=== PATIENT | male | born 1940 | race Caucasian/White ===

== ENCOUNTER 2016-12-27 08:31 | Day surgery (SDC) | payer BC, MEDICARE, OTHER ==
[~2016-12-27 08:31] MED LIST: KETOROLAC TROMETHAMINE 0.45% 4 DROP/0.4 ML DROPERETTE OS PRN
[2016-12-27] MEDS: TETRACAINE HCL 0.5% OPH SOLN 2 ML OS PRN ×3 (09:14→10:08)
[2016-12-27] MEDS: TROPICAMIDE 1% OPH SOLN 3 ML OS PRN ×3 (09:14→09:35)
[2016-12-27] MEDS: BESIFLOXACIN HCL 0.6% OPH SUSP 5 ML BOTTLE OS PRN ×3 (09:15→10:42)
[2016-12-27] MEDS: CYCLOPENTOLATE 0.2%/PHENYLEPHRINE 1% OPH SOLN 2 ML OS PRN ×3 (09:15→09:35)
[2016-12-27] MEDS ORDERED: CHONDR SU A NA/HYALUR INTRAOC KIT (SURGICARE) ONE (09:35)
[2016-12-27] MEDS ORDERED: LIDOCAINE 1% INJ-PF (10 MG/ML) 30 ML SDV ONE (09:35)
[2016-12-27] MEDS ORDERED: PHENYLEPHRINE/KETOROLAC 1%-0.3% 4 ML VIAL ONE (09:35)
[2016-12-27] MEDS ORDERED: MIDAZOLAM 2 MG/2 ML INJ ONE (09:38)
[2016-12-27] MEDS ORDERED: BRIMONIDINE TARTRATE 0.2% OPH SOLN 5 ML OS ONE (10:45)
[2016-12-27] MEDS ORDERED: LIDOCAINE 2% INJ (20 MG/ML) 20 ML MDV ONE (10:50)
--- NOTE | 2016-12-27 19:43 | [facility] OPERATIVE REPORT E ---
[facility] Operative Report NAME: IRENE SCHWARTZ AGE: 76Y PREOPERATIVE DIAGNOSES: 1. CATARACT, LEFT EYE. 2. PUPIL MYOSIS LEFT EYE POSTOPERATIVE DIAGNOSIS: CATARACT, LEFT EYE. OPERATION: Complex cataract extraction with maluygan ring due to very myotic pupils. SURGEON: JUAN R CHINCHILLA M.D. ANESTHESIA: Topical. LENS: 22.0 diopter lens PROCEDURE: After obtaining appropriate consent, the patient's eye was prepped and draped in sterile fashion as well as the surgeon in a sterile manner and cataract surgery was started. First a paracentesis blade was used to make a small side-port incision. Viscoelastic was used to inflate the anterior chamber. Next a 2.4 mm incision was made with the paracentesis blade. A continuous capsulorrhexis incision was made using a cystotome and Utrata forceps. Following this hydrodissection was carried out to make the lens fully loose and mobile and it was rotated 90 degrees. Following this, a bbibmr-wje-rzilohq technique was used to phacoemulsify the lens with a CDE of 15.05. The remaining cortex was removed with irrigation/aspiration. Provisc was instilled into the capsular bag to inflate the bag. A SN60WF, 22 diopter lens was placed. The remaining viscoelastic material was removed with irrigation/aspiration. Following this, a 10-0 nylon suture was used to close the incision and it was found to be watertight. Vigamox was instilled in the eye and a protective shield was placed over the eye. The patient returned to the postoperative recovery in stable condition. Prior to making the capsulorhexis a maluygan ring was inserted due to pupil myosis. This was removed at the end of the case. DICTATING PHYSICIAN: JUAN R CHINCHILLA M.D. [id number] PHY#: [id number] ID: [id number] JOB#: [id number] ACCT: [id number] cc:JUAN R CHINCHILLA M.D. > MTDD
--- NOTE | 2016-12-28 13:13 | DISCHARGE SUMMARY E ---
Discharge Summary NAME: IRENE SCHWARTZ : 1940 AGE: 76Y ADMITTED: 12/27/2016 DISCHARGED: 12/27/2016 This is a 76-year-old male who underwent cataract extraction of his left eye. He should be on a regular diet. No bending at the waist. No heavy lifting. He underwent surgery as he was having trouble reading road signs, making it difficult to drive at night and difficult to read his Bible. DIAGNOSES: 1. Cataract left eye. 2. Pupil myosis left eye. He underwent complex cataract extraction due to use of a Malyugin ring. Pt should use their besivance, Illevro, and Durezol at 3pm/8pm. DICTATING PHYSICIAN: JUAN R CHINCHILLA M.D. [id number] 1940 PHY#: [id number] ID: [id number] JOB#: [id number] ACCT: [id number] cc:JUAN R CHINCHILLA M.D. > MTDD
== END 2016-12-27 11:28 | disposition home or self-care (01) ==
LOC: SC 08:31
PROVIDERS: ATTEND Internal Medicine
PROC: 08RK3JZ Replacement of Left Lens with Synthetic Substitute, Percutaneous Approach (ICD-10-PCS; principal; 2016-12-27 10:00)
DX: H25.12 Age-related nuclear cataract, left eye (principal); H57.03 Miosis; H17.89 Other corneal scars and opacities; E11.9 Type 2 diabetes mellitus without complications; I10 Essential (primary) hypertension; E78.00 Pure hypercholesterolemia, unspecified; K21.9 Gastro-esophageal reflux disease without esophagitis; I51.9 Heart disease, unspecified; Z87.891 Personal history of nicotine dependence; Z88.8 Allergy status to other drugs, medicaments and biological substances; Z79.899 Other long term (current) drug therapy; Z79.82 Long term (current) use of aspirin
CPT/HCPCS: 66982; 82962; V2632; J2250; J3490 ×3; A9270; C9447; 142

== ENCOUNTER 2017-10-30 07:50 | Day surgery (SDC) | payer MEDICARE ==
[~2017-10-30 07:50] MED LIST changes: +DEXTROSE 5%-1/2 NORMAL SALINE 1,000 ML IV PRN; -KETOROLAC TROMETHAMINE 0.45% 4 DROP/0.4 ML DROPERETTE OS PRN
[2017-10-30 08:55] LABS: HEMATOCRIT 40.7 % (37.9-51.0); HEMOGLOBIN 13.3 g/dL (13.5-17.0); MEAN CORPUSCULAR HEMOGLOBIN 27.8 pg (27.0-33.4); MEAN CORPUSCULAR HGB CONC 32.7 g/dL (32.0-36.0); MEAN CORPUSCULAR VOLUME 85 fl (80-97); PLATELET COUNT 201 10^3/uL (150-450); RED BLOOD COUNT 4.79 10^6/uL (4.35-5.55); RED CELL DISTRIBUTION WIDTH 17.9 % (11.5-14.0); WHITE BLOOD COUNT 7.1 10^3/uL (4.0-10.5)
[2017-10-30] MEDS ORDERED: PROPOFOL INJ 200 MG/20 ML VIAL IV ONE (09:55)
[2017-10-30] MEDS ORDERED: LIDOCAINE 2% INJ-PF (20 MG/ML) 10 ML AMPUL ONE (09:55)
[2017-10-30] MEDS ORDERED: EPHEDRINE SULFATE INJ 50 MG/1 ML AMPULE ONE (09:55)
[2017-10-30] MEDS ORDERED: ONDANSETRON HCL INJ/PF 4 MG/2 ML SDV ONE (09:55)
[2017-10-30] MEDS ORDERED: DIPHENHYDRAMINE HCL 50 MG/ML VIAL IV PRN (10:59)
[2017-10-30] MEDS ORDERED: PROMETHAZINE HCL INJ 25 MG/1 ML VIAL IV PRN ×2 (10:59)
[2017-10-30] MEDS ORDERED: ONDANSETRON HCL INJ/PF 4 MG/2 ML SDV IV PRN (10:59)
[2017-10-30] MEDS ORDERED: MEPERIDINE HCL/PF INJ 25 MG/1 ML DISP.SYRIN IV PRN (10:59)
[2017-10-30] MEDS ORDERED: DEXTROSE 5%-1/2 NORMAL SALINE 1,000 ML IV PRN (11:41)
[2017-10-30] MEDS ORDERED: ACETAMINOPHEN 325 MG TABLET PO PRN (11:42)
[2017-10-30] MEDS ORDERED: SIMETHICONE 80 MG TAB.CHEW PO PRN (11:42)
[2017-10-30] MEDS ORDERED: PROMETHAZINE HCL INJ 25 MG/1 ML VIAL INJ PRN (11:43)
--- NOTE | 2017-10-30 12:01 | Operative Report ---
Operative Report DATE OF SURGERY: 10/30/17 Operative Report: The risks, benefits and alternatives of the procedure including risks of bleeding, perforation requiring surgery I explained to the patient in detail and informed consent was obtained. Patient was taken back to the operating room and placed in the left, lateral decubital position. Timeout was called. Propofol medications administered. A rectal examination is done which did not reveal any masses, tears or fissures. An Olympus videoscope was inserted into the patient's rectum. The scope was then carefully advanced all the way to the cecum. The cecum was identified by the usual anatomical landmarks including the ileocecal valve as well as the appendiceal office. Photodocumentation is obtained. The scope was then sequentially pulled back via the various segments of the colon including the ascending colon, hepatic flexure, transverse colon, splenic flexure, descending colon and finding to the rectosigmoid portions of the colon. Retroflexion maneuvers performed. The risks benefits and alternatives of the procedure explained to the patient in detail and informed consent is obtained.A GIF Olympus video scope was inserted into the patient's mouth and hypopharynx, the esophagus is identified intubated and insufflated, the scope was then advanced through the esophagus stomach and duodenum, retroflexion maneuver is done, the esophagus stomach and first and second portions of the duodenum examined PREOPERATIVE DIAGNOSIS: Anemia, questionable blood loss POSTOPERATIVE DIAGNOSIS: Diverticulosis. Internal hemorrhoids. 3 colon polyps. Polyp noted in the ascending colon was removed via biopsy forceps, second polyp noted in the splenic flexure that was removed via snare polypectomy and retrieved, the polyp noted in the sigmoid area attempted snare polypectomy but was essentially ablated in situ. Random right side biopsies rule out collagenous colitis. Gastritis status post biopsy rule out Helicobacter pylori. OPERATION: Colonoscopy with snare polypectomy. Colonoscopy with biopsy. EGD with biopsy SURGEON: MAX VEGA ANESTHESIA: LMAC TISSUE REMOVED OR ALTERED: As noted above. COMPLICATIONS: None. ESTIMATED BLOOD LOSS: None. INTRAOPERATIVE FINDINGS: As noted above. PROCEDURE: Patient tolerated the procedure well. No immediate postprocedure complications are noted. Patient discharged in good condition. Discharge date 10/30/2017 Discharge diet: Regular. Discharge activity: Regular. 2-3 week follow-up to discuss findings. Patient is instructed call the office or proceed to the emergency room should there be any further problems or questions. We will await pathology. 3-5 year surveillance colonoscopy. Alternative prep at next colonoscopy
[2017-10-30 12:39] VITALS: BP 140/72
== END 2017-10-30 12:25 | disposition home or self-care (01) ==
LOC: OROUT 07:50
PROVIDERS: ATTEND Internal Medicine Gastroenterology
PROC: 0DB68ZX Excision of Stomach, Via Natural or Artificial Opening Endoscopic, Diagnostic (ICD-10-PCS; principal; 2017-10-30 10:15)
PROC: 0DBL8ZX Excision of Transverse Colon, Via Natural or Artificial Opening Endoscopic, Diagnostic (ICD-10-PCS; 2017-10-30 10:15)
PROC: 0D5N8ZZ Destruction of Sigmoid Colon, Via Natural or Artificial Opening Endoscopic (ICD-10-PCS; 2017-10-30 10:15)
DX: D12.3 Benign neoplasm of transverse colon (principal); D12.2 Benign neoplasm of ascending colon; D12.5 Benign neoplasm of sigmoid colon; K29.50 Unspecified chronic gastritis without bleeding; K57.30 Diverticulosis of large intestine without perforation or abscess without bleeding; K64.8 Other hemorrhoids; D50.0 Iron deficiency anemia secondary to blood loss (chronic); E11.9 Type 2 diabetes mellitus without complications; I25.10 Atherosclerotic heart disease of native coronary artery without angina pectoris; N40.1 Benign prostatic hyperplasia with lower urinary tract symptoms; Z79.899 Other long term (current) drug therapy; Z79.82 Long term (current) use of aspirin
CPT/HCPCS: 43239; 45380; 45385; 45388; 36415; 82962; 85027; 88342 ×2; 88305 ×2; J2405; J2704; J3490; 44388; 813

== ENCOUNTER 2018-04-24 10:16 | Day surgery (SDC) | payer MEDICARE ==
[~2018-04-24 10:16] MED LIST changes: +CHONDR SU A NA/HYALUR INTRAOC KIT (SURGICARE) ONE; -DEXTROSE 5%-1/2 NORMAL SALINE 1,000 ML IV PRN; +EPINEPHRINE INJ/PF 1 MG/1 ML AMPULE ONE; +KETOROLAC TROMETHAMINE 0.45% 4 DROP/0.4 ML DROPERETTE OD PRN; +LIDOCAINE 1%/PHENYLEPHRINE 1.5% 1 ML VIAL ONE; +LIDOCAINE 3.5% OPH GEL/PF 1 ML/TUBE OD PRN
[2018-04-24] MEDS: CYCLOPENTOLATE 0.2%/PHENYLEPHRINE 1% OPH SOLN 2 ML OD PRN ×3 (10:58→11:18)
[2018-04-24] MEDS: TETRACAINE HCL 0.5% OPH SOLN 2 ML OD PRN ×2 (10:58→11:24)
[2018-04-24] MEDS: TROPICAMIDE 1% OPH SOLN 3 ML OD PRN ×3 (10:59→11:18)
[2018-04-24] MEDS: BESIFLOXACIN HCL 0.6% OPH SUSP 5 ML BOTTLE OD PRN ×2 (10:59→11:19)
[2018-04-24] MEDS ORDERED: TRYPAN BLUE 0.06 % OPH SOLN 0.5 ML DISP.SYRIN ONE ×2 (11:25→11:43)
[2018-04-24] MEDS ORDERED: MIDAZOLAM 2 MG/2 ML INJ ONE (11:32)
[2018-04-24] MEDS ORDERED: BALANCED SALT IRRIG SOLN COMB2 15 ML BOTTLE ONE (12:07)
[2018-04-24] MEDS ORDERED: CHONDR SU A NA/HYALUR SOD 0.5 ML DISP.SYRIN ONE ×2 (12:07→12:16)
[2018-04-24] MEDS ORDERED: BRIMONIDINE TARTRATE 0.2% OPH SOLN 5 ML OD ONE (13:45)
--- NOTE | 2018-04-24 20:16 | [facility] OPERATIVE REPORT E ---
[facility] Operative Report NAME: IRENE SCHWARTZ AGE: 78Y DATE OF SURGERY: 04/24/2018 ROOM: PREOPERATIVE DIAGNOSES: 1. Age-related cataract of the right eye. 2. Pupil miosis of the right eye. 3. Corneal scarring of the right eye. POSTOPERATIVE DIAGNOSES: 1. Age-related cataract of the right eye. 2. Pupil miosis of the right eye. 3. Corneal scarring of the right eye. OPERATION: Complex cataract extraction with use of Trypan Blue dye and a Malyugin ring due to poor pupillary dilation. SURGEON: JUAN R CHINCHILLA M.D. ANESTHESIA: Topical. COMPLICATIONS: None. ESTIMATED BLOOD LOSS: None. PROCEDURE: After obtaining appropriate consent, the patient's right eye was prepped and draped in sterile fashion as well as the surgeon in a sterile manner, and the cataract surgery was started. First, the paracentesis blade was used to make a small side-port incision. Viscoelastic was used to inflate the anterior chamber. Next a 2.4 mm incision was made using a 2.4 mm keratome. At this point, the pupil was less than 4.5 mm and was very miotic. In order to complete the capsulorhexis, a Malyugin ring was inserted and found to be in excellent position to help stabilize the pupil. Following this, a continuous capsulorhexis was made using a cystitome and Utrata forceps. Following this, hydrodissection was carried out to make the lens fully loose and mobile, and it was rotated 90 degrees. Following this, a divide and conquer technique was used to phacoemulsify the lens with a CDE of 27.93. The remaining cortex was removed with irrigation/aspiration. Provisc was instilled into the capsular bag to inflate the bag. A SN60WF lens of 28.5 diopters was placed. The remaining viscoelastic material was removed with irrigation/aspiration. After this the Malyugin ring was removed. Following this, the incision was found to be watertight. Besivance was instilled into the eye and a protective shield was placed over the eye. The patient returned to the postoperative recovery in stable condition. Due to previous corneal procedures and scarring as well as a sutured graft, there was very poor visualization of the anterior capsule; therefore, Trypan Blue dye was used to stain the anterior capsule before performing a capsulorrhexis. Due to poor pupillary dilation a Malyugin ring was inserted into the iris prior to making the capsulorrhexis and this was removed at the end of the case. DICTATING PHYSICIAN: JUAN R CHINCHILLA M.D. [id number] 2008 PHY#: [id number] 1937 ID: [id number] JOB#: [id number] ACCT: [id number] cc:JUAN R CHINCHILLA M.D. >
--- NOTE | 2018-04-24 20:22 | [facility] DISCHARGE SUMMARY E ---
[facility] Discharge Summary NAME: IRENE SCHWARTZ AGE: 78Y ADMITTED: 04/24/2018 DISCHARGED: 04/24/2018 DIAGNOSES: 1. Age-related cataract of the right eye. 2. Pupil miosis of the right eye. SUMMARY: This is a 78-year-old male who underwent complex cataract extraction, right eye with use of Malyugin ring and Trypan Blue dye. Patient underwent surgery because he was having trouble seeing facial features on others. DISCHARGE INSTRUCTIONS: Patient is to be on a regular diet, no bending at the waist, and no heavy lifting. Patient should use his Besivance, Ilevro, and Durezol at 3 p.m. and 8 p.m. I also instructed him to use Alphagan at 3 p.m., 8 p.m., and in the morning to help control his IOP. Patient is to sleep with his rigid shield, and I will see him for his 1-day postoperative tomorrow. DICTATING PHYSICIAN: JUAN R CHINCHILLA M.D. [id number] 2012 PHY#: 2011 1937 ID: [id number] JOB#: [id number] ACCT: [id number] cc:JUAN R CHINCHILLA M.D. >
== END 2018-04-24 13:13 | disposition home or self-care (01) ==
LOC: SC 10:16
PROVIDERS: ATTEND Internal Medicine
DX: H25.89 Other age-related cataract (principal); H57.03 Miosis; H17.9 Unspecified corneal scar and opacity; E11.9 Type 2 diabetes mellitus without complications; I10 Essential (primary) hypertension; Z88.8 Allergy status to other drugs, medicaments and biological substances; Z87.891 Personal history of nicotine dependence
CPT/HCPCS: 66982; V2632; J2250; J3490 ×4; A9270; J0171; J2370; 142

== ENCOUNTER 2018-11-08 16:53 | Inpatient (IN) | payer MEDICARE, OTHER ==
--- NOTE | 2018-11-08 18:27 | ER Document Report ---
ED Medical Screen (RME) - General Chief Complaint: Fever Stated Complaint: FEVER Time Seen by Provider: 11/08/18 18:18 Primary Care Provider: HOMER MARTINEZ DO [Primary Care Provider] - Follow up as needed Mode of Arrival: Wheelchair Information source: Patient, Relative, [facility] Records Notes: 78-year-old male with coronary artery disease presents with sudden onset of chills, shaking. Patient denies headache, nausea, vomiting, cough, chest pain, shortness of breath, abdominal pain. Patient did receive a flu and pneumonia shot. Patient reports that he had similar symptoms when he was diagnosed with sepsis several years ago. He has been otherwise well. I have greeted and performed a rapid initial assessment of this patient. A comprehensive ED assessment and evaluation of the patient, analysis of test results and completion of medical decision making process we will be contacted by additional ED providers. PHYSICAL EXAMINATION: Vital signs reviewed-tachycardic GENERAL: Pale, ill-appearing LUNGS: No respiratory distress Musculoskeletal: Normal range of motion NEUROLOGICAL: Normal speech, PSYCH: Normal mood, normal affect. SKIN: Warm, Dry, normal turgor, no rashes or lesions noted.- TRAVEL OUTSIDE OF THE [place] IN LAST 30 DAYS: No - HPI Onset: Just prior to arrival Onset/Duration: Sudden Quality of pain: No pain Severity: None Associated Symptoms: None, Chills, Other. denies: Body/muscle aches, Cough (productive), Diarrhea, Fever, Nausea - Shaking Exacerbated by: Denies Relieved by: Denies Similar symptoms previously: Yes Recently seen / treated by doctor: No - Related Data Smoking: Non-smoker Frequency of alcohol use: None Drug Abuse: None Allergies/Adverse Reactions: clopidogrel [From Plavix] Allergy (Verified 10/30/17 08:25) Generalized rash SEAFOOD Allergy (Uncoded 10/30/17 08:25) GI upset Past Medical History - Past Medical History Cardiac Medical History: Reports: Hx Coronary Artery Disease, Hx Hypertension Denies: Hx Heart Attack - STENT X 1 Pulmonary Medical History: Reports: Hx Pneumonia Denies: Hx Asthma, Hx Bronchitis, Hx COPD Neurological Medical History: Denies: Hx Cerebrovascular Accident, Hx Seizures Renal/ Medical History: Denies: Hx Peritoneal Dialysis GI Medical History: Denies: Hx Hepatitis, Hx Hiatal Hernia, Hx Ulcer Musculoskeltal Medical History: Denies Hx Arthritis Infectious Medical History: Denies: Hx Hepatitis Past Surgical History: Denies: Hx Open Heart Surgery, Hx Pacemaker - Immunizations Hx Diphtheria, Pertussis, Tetanus Vaccination: No History of Influenza Vaccine for 06/2017 - 10/2017 Season: Yes Physical Exam - Vital signs Vitals: Temp Pulse Resp BP Pulse Ox 98.2 F 121 H 18 149/89 H 96 11/08/18 16:59 11/08/18 16:59 11/08/18 16:59 11/08/18 16:59 11/08/18 16:59 Course - Vital Signs Vital signs: Temp Pulse Resp BP Pulse Ox 98.2 F 121 H 18 149/89 H 96 11/08/18 16:59 11/08/18 16:59 11/08/18 16:59 11/08/18 16:59 11/08/18 16:59 Doctor's Discharge - Discharge Referrals: HOMER MARTINEZ DO [Primary Care Provider] - Follow up as needed
[2018-11-08] MEDS ORDERED: RINGERS SOLUTION,LACTATED 1,000 ML IV ONE (18:30)
[2018-11-08 18:42] LABS: ABSOLUTE LYMPHOCYTES (AUTO) 0.4 10^3/uL (0.5-4.7); ABSOLUTE NEUT (AUTO) 3.8 10^3/uL (1.7-8.2); BASOPHILS % (AUTO) 0.2 % (0-2); EOSINOPHILS % (AUTO) 0.8 % (0-6); HEMATOCRIT 43.7 % (37.9-51.0); LYMPHOCYTES % (AUTO) 8.6 % (13-45); MEAN CORPUSCULAR HEMOGLOBIN 30.3 pg (27.0-33.4); MEAN CORPUSCULAR HGB CONC 34.2 g/dL (32.0-36.0); MEAN CORPUSCULAR VOLUME 89 fl (80-97); MONOCYTES % (AUTO) 0.6 % (3-13); PLATELET COUNT 180 10^3/uL (150-450); RED BLOOD COUNT 4.94 10^6/uL (4.35-5.55); RED CELL DISTRIBUTION WIDTH 13.8 % (11.5-14.0); SEGMENTED NEUTROPHILS % (AUTO) 89.8 % (42-78); TOTAL CELLS COUNTED % (AUTO) 100 %; WHITE BLOOD COUNT 4.2 10^3/uL (4.0-10.5)
[2018-11-08 19:05] LABS: ALANINE AMINOTRANSFERASE 55 U/L (21-72); ALBUMIN 4.7 g/dL (3.5-5.0); ALKALINE PHOSPHATASE 86 U/L (38-126); ANION GAP 13 (5-19); ASPARTATE AMINO TRANSFERASE 50 U/L (17-59); BILIRUBIN,DIRECT 0.2 mg/dL (0.0-0.4); BILIRUBIN,TOTAL 0.5 mg/dL (0.2-1.3); BLOOD UREA NITROGEN 17 mg/dL (7-20); CALCIUM 9.6 mg/dL (8.4-10.2); CARBON DIOXIDE 24 mmol/L (22-30); CHLORIDE 100 mmol/L (98-107); GLUCOSE 107 mg/dL (75-110); POTASSIUM 3.8 mmol/L (3.6-5.0); SODIUM 137.1 mmol/L (137-145); TOTAL PROTEIN 7.4 g/dL (6.3-8.2)
[2018-11-08] MEDS ORDERED: DILTIAZEM HCL/D5W 125 MG/125 ML RTUINJ IV PRN (19:15)
[2018-11-08] MEDS ORDERED: DILTIAZEM HCL INJ 25 MG/5 ML VIAL IV ONE (19:15)
--- NOTE | 2018-11-08 19:16 | ER Document Report ---
ED General - General Chief Complaint: Fever Stated Complaint: FEVER Time Seen by Provider: 11/08/18 18:18 Primary Care Provider: HOMER MARTINEZ DO [Primary Care Provider] - Follow up as needed Mode of Arrival: Wheelchair Notes: 78-year-old male to the emergency department for evaluation of possible fever. Patient states that he has not felt well for several days. Has felt very weak and out of it. Not himself. Was feeling very cold and was bundled up in multiple blankets by the fire. checked his temperature and said it was 104 by digital thermometer. They decided to bring him in because he has been septic in the past. Patient denies any abdominal pain, chest pain, changes in bowel or bladder function or other issues other than just feeling very tired and weak and sleepy. TRAVEL OUTSIDE OF THE [place] IN LAST 30 DAYS: No - HPI Onset: Yesterday Onset/Duration: Gradual Quality of pain: No pain Severity: Moderate Pain Level: Denies Associated symptoms: Fever, Weakness Similar symptoms previously: Yes Recently seen / treated by doctor: No - Related Data Allergies/Adverse Reactions: clopidogrel [From Plavix] Allergy (Verified 10/30/17 08:25) Generalized rash SEAFOOD Allergy (Uncoded 10/30/17 08:25) GI upset Past Medical History - General Information source: Patient, Relative, [facility] Records - Social History Smoking Status: Former Smoker Frequency of alcohol use: None Drug Abuse: None Family History: Reviewed & Not Pertinent Patient has suicidal ideation: No Patient has homicidal ideation: No - Past Medical History Cardiac Medical History: Reports: Hx Coronary Artery Disease, Hx Hypertension Denies: Hx Heart Attack - STENT X 1 Pulmonary Medical History: Reports: Hx Pneumonia Denies: Hx Asthma, Hx Bronchitis, Hx COPD Neurological Medical History: Denies: Hx Cerebrovascular Accident, Hx Seizures Renal/ Medical History: Denies: Hx Peritoneal Dialysis GI Medical History: Denies: Hx Hepatitis, Hx Hiatal Hernia, Hx Ulcer Musculoskeletal Medical History: Denies Hx Arthritis Infectious Medical History: Denies: Hx Hepatitis Past Surgical History: Denies: Hx Open Heart Surgery, Hx Pacemaker - Immunizations Hx Diphtheria, Pertussis, Tetanus Vaccination: No Hx Pneumococcal Vaccination: 06/02/17 Review of Systems - Review of Systems Notes: Constitutional: denies: Chills, Diaphoresis, +Fever, +Malaise, +Weakness EENT: denies: Eye discharge, Blurred vision, Tearing, Double vision, Nose congestion, Nose discharge, Throat swelling, Mouth pain Cardiovascular: denies: Palpitations, Heart racing, Orthopnea, Dyspnea, Chest pain Respiratory: denies: Cough, Hurts to breathe, Wheezing, Shortness of breath Gastrointestinal: denies: Abdominal pain, Diarrhea, Nausea, Vomiting, Black stools, bright red blood in stool Genitourinary: denies: Burning, Dysuria, Discharge, Frequency, Flank pain, Hematuria Musculoskeletal: denies: Joint pain, Joint swelling, Muscle pain, Muscle stiffness, back pain Hematologic/Lymphatic: denies: Anemia, Easy bleeding, Easy bruising, Blood clots Neurological/Psychological: denies: Confusion, Dementia, Depression, Loss of consciousness Skin: No lesions, no masses, no skin breakdown, no abscesses Physical Exam - Vital signs Vitals: Temp Pulse Resp BP Pulse Ox 98.2 F 121 H 18 149/89 H 96 11/08/18 16:59 11/08/18 16:59 11/08/18 16:59 11/08/18 16:59 11/08/18 16:59 Interpretation: Tachycardic - Irregularly irregular - General General appearance: Appears well, Alert - HEENT Head: Normocephalic, Atraumatic Eyes: Normal Pupils: PERRL - Respiratory Respiratory status: No respiratory distress Chest status: Nontender Breath sounds: Other - Faint crackles bilateral lower lobes Chest palpation: Normal - Cardiovascular Rhythm: Irregularly irregular, Tachycardia Heart sounds: Normal auscultation Murmur: No - Abdominal Inspection: Normal Distension: No distension Bowel sounds: Normal Tenderness: Nontender Organomegaly: No organomegaly - Back Back: Normal, Nontender - Extremities General upper extremity: Normal inspection, Nontender, Normal color, Normal ROM, Normal temperature General lower extremity: Normal inspection, Nontender, Edema - Race bilateral lower extremity edema, Normal color, Normal ROM, Normal temperature, Normal weight bearing. No: Price's sign - Neurological Neuro grossly intact: Yes Cognition: Normal Orientation: AAOx4 Nucla Coma Scale Eye Opening: Spontaneous Jamarcus Coma Scale Verbal: Oriented Jamarcus Coma Scale Motor: Obeys Commands Nucla Coma Scale Total: 15 Speech: Normal Motor strength normal: LUE, RUE, LLE, RLE Sensory: Normal - Psychological Associated symptoms: Normal affect, Normal mood - Skin Skin Temperature: Warm Skin Moisture: Dry Skin Color: Normal Course - Re-evaluation Re-evalutation: 11/08/18 20:26 Patient is afebrile at time of admission but found to be in atrial fibrillation with rapid ventricular response with heart rates all the way up to 170. Patient immediately placed on a diltiazem drip and bolus. Patient's heart rate is coming down nicely. Currently patient's heart rate is around 104. Blood pressure remains stable at 117/73. Oxygen saturations are 95% with a respiratory rate of 20. I have ordered sepsis protocol just to be safe been th at the family reported a fever but no fever here. Lactate slightly elevated. 11/08/18 20:41 Laboratory 11/08/18 11/08/18 11/08/18 18:22 18:22 18:22 WBC 4.2 RBC 4.94 Hgb 15.0 Hct 43.7 MCV 89 MCH 30.3 MCHC 34.2 RDW 13.8 Plt Count 180 Seg Neutrophils % 89.8 H Lymphocytes % 8.6 L Monocytes % 0.6 L Eosinophils % 0.8 Basophils % 0.2 Absolute Neutrophils 3.8 Absolute Lymphocytes 0.4 L Absolute Monocytes 0.0 L Absolute Eosinophils 0.0 Absolute Basophils 0.0 PT INR APTT VBG pH VBG pCO2 VBG HCO3 VBG Base Excess Sodium 137.1 Potassium 3.8 Chloride 100 Carbon Dioxide 24 Anion Gap 13 BUN 17 Creatinine 1.11 Est GFR ( Amer) > 60 Est GFR (Non-Af Amer) > 60 Glucose 107 Lactic Acid 3.2 H Calcium 9.6 Total Bilirubin 0.5 Direct Bilirubin 0.2 Neonat Total Bilirubin Not Reportable Neonat Direct Bilirubin Not Reportable Neonat Indirect Bili Not Reportable AST 50 ALT 55 Alkaline Phosphatase 86 Troponin I NT-Pro-B Natriuret Pep Total Protein 7.4 Albumin 4.7 Influenza A (Rapid) Influenza B (Rapid) 11/08/18 11/08/18 11/08/18 18:22 18:22 18:54 WBC RBC Hgb Hct MCV MCH MCHC RDW Plt Count Seg Neutrophils % Lymphocytes % Monocytes % Eosinophils % Basophils % Absolute Neutrophils Absolute Lymphocytes Absolute Monocytes Absolute Eosinophils Absolute Basophils PT 14.1 INR 1.04 APTT 27.7 VBG pH VBG pCO2 VBG HCO3 VBG Base Excess Sodium Potassium Chloride Carbon Dioxide Anion Gap BUN Creatinine Est GFR ( Amer) Est GFR (Non-Af Amer) Glucose Lactic Acid Calcium Total Bilirubin Direct Bilirubin Neonat Total Bilirubin Neonat Direct Bilirubin Neonat Indirect Bili AST ALT Alkaline Phosphatase Troponin I < 0.012 NT-Pro-B Natriuret Pep 192 Total Protein Albumin Influenza A (Rapid) NEGATIVE Influenza B (Rapid) NEGATIVE 11/08/18 19:35 WBC RBC Hgb Hct MCV MCH MCHC RDW Plt Count Seg Neutrophils % Lymphocytes % Monocytes % Eosinophils % Basophils % Absolute Neutrophils Absolute Lymphocytes Absolute Monocytes Absolute Eosinophils Absolute Basophils PT INR APTT VBG pH 7.39 VBG pCO2 48.3 VBG HCO3 28.4 VBG Base Excess 2.5 Sodium Potassium Chloride Carbon Dioxide Anion Gap BUN Creatinine Est GFR ( Amer) Est GFR (Non-Af Amer) Glucose Lactic Acid Calcium Total Bilirubin Direct Bilirubin Neonat Total Bilirubin Neonat Direct Bilirubin Neonat Indirect Bili AST ALT Alkaline Phosphatase Troponin I NT-Pro-B Natriuret Pep Total Protein Albumin Influenza A (Rapid) Influenza B (Rapid) Chest X-Ray 11/08/18 19:16 IMPRESSION: No evidence of acute cardiopulmonary disease. - Vital Signs Vital signs: Temp Pulse Resp BP Pulse Ox 98.2 F 121 H 25 H 104/62 93 11/08/18 16:59 11/08/18 16:59 11/08/18 20:43 11/08/18 20:43 11/08/18 20:43 - Laboratory Result Diagrams: 11/08/18 18:22 11/08/18 18:22 Laboratory results interpreted by me: 11/08/18 11/08/18 18:22 18:22 Seg Neutrophils % 89.8 H Lymphocytes % 8.6 L Monocytes % 0.6 L Absolute Lymphocytes 0.4 L Absolute Monocytes 0.0 L Lactic Acid 3.2 H Critical Care Note - Critical Care Note Total time excluding time spent on procedures (mins): 35 Comments: Tachycardia,, hypotension Discharge - Discharge Clinical Impression: Atrial fibrillation with rapid ventricular response Condition: Good Disposition: ADMITTED INPATIENT Admitting Provider: Hospitalist [facility] Unit Admitted: IMCU Referrals: HOMER MARTINEZ DO [Primary Care Provider] - Follow up as needed
[2018-11-08 19:31] LABS: INTERNATIONAL RATION (INR) 1.04; PROTHROMBIN TIME 14.1 SEC (11.4-15.4)
[2018-11-08 19:32] LABS: PARTIAL THROMBOPLASTIN TIME 27.7 SEC (23.5-35.8)
[2018-11-08 19:42] LABS: A TYPE INFLUENZA AG NEGATIVE (NEGATIVE); B INFLUENZA AG NEGATIVE (NEGATIVE)
[2018-11-08 19:46] LABS: NT PRO BNP 192 pg/mL (<450)
[2018-11-08 19:47] LABS: TROPONIN I < 0.012 ng/mL
[2018-11-08 20:01] LABS: VENOUS BLOOD BASE EXCESS 2.5 mmol/L; VENOUS BLOOD HCO3 28.4 mmol/L (20-32); VENOUS BLOOD PCO2 48.3 mmHg (35-63); VENOUS BLOOD PH 7.39 (7.30-7.42)
--- NOTE | 2018-11-08 20:31 | RADIOLOGY REPORT (SQ) ---
EXAM DESCRIPTION: XR CHEST 1 VIEW COMPLETED DATE/TME: 11/08/2018 19:16 CLINICAL HISTORY: sob COMPARISON: None FINDINGS: Cardiac silhouette is mildly enlarged which could be secondary to cardiomegaly. EKG leads project over the chest. There is no focal parenchymal or pleural disease. There is no acute osseous process visualized. IMPRESSION: No evidence of acute cardiopulmonary disease.
[2018-11-08] MEDS ORDERED: NORMAL SALINE 1000 ML 1,000 ML IV ONE ×2 (20:45→20:50)
[2018-11-08] MEDS ORDERED: ONDANSETRON 4 MG TAB.RAPDIS PO PRN (21:24)
[2018-11-08] MEDS ORDERED: TEMAZEPAM 15 MG CAPSULE PO PRN (21:24)
[2018-11-08] MEDS ORDERED: ONDANSETRON HCL INJ/PF 4 MG/2 ML SDV IV PRN (21:24)
[2018-11-08] MEDS ORDERED: MAGNESIUM HYDROXIDE SUSP 30 ML UDCUP PO PRN (21:24)
[2018-11-08] MEDS ORDERED: MAG HYDROX/AL HYDROX/SIMETH SUSP 30 ML UDCUP PO PRN (21:24)
[2018-11-08] MEDS ORDERED: ACETAMINOPHEN 325 MG TABLET PO PRN (21:39)
[2018-11-08] MEDS ORDERED: MEROPENEM 1 GM VIAL IV PRN (21:45)
--- NOTE | 2018-11-08 22:18 | EKG REPORT ---
SEVERITY:- ABNORMAL ECG - ATRIAL FIBRILLATION INCOMPLETE RIGHT BUNDLE BRANCH BLOCK : Confirmed by: Marry Sal MD 08-Nov-2018 22:17:22
[2018-11-08 22:22] LABS: CREATINE KINASE MB 0.88 ng/mL (<4.55)
[2018-11-08 22:23] LABS: TROPONIN I < 0.012 ng/mL
[2018-11-08 22:38] LABS: APPEARANCE,URINE SLIGHTLY-CLOUDY; BILIRUBIN,URINE NEGATIVE (NEGATIVE); COLOR,URINE YELLOW; GLUCOSE, URINE NEGATIVE (NEGATIVE); KETONES,URINE NEGATIVE (NEGATIVE); LEUKOCYTE ESTERASE,URINE NEGATIVE (NEGATIVE); NITRITE,URINE NEGATIVE (NEGATIVE); PROTEIN,URINE NEGATIVE (NEGATIVE); URINE SPECIFIC GRAVITY 1.013; UROBILINOGEN,URINE NEGATIVE mg/dL (<2.0)
[2018-11-08] MEDS ORDERED: MEROPENEM 1 GM in NORMAL SALINE 50 ML IV ONE (23:30)
[2018-11-08] MEDS ORDERED: FAMOTIDINE 20 MG TABLET PO ONE (23:59)
--- NOTE | 2018-11-09 00:09 | PDOC H&P ---
History of Present Illness Admission Date/PCP: 11/08/18 20:54 HOMER MARTINEZ DO Patient complains of: Fever History of Present Illness: IRENE SCHWARTZ SR is a 78 year old male who presented to the emergency room with acute onset of fever. Patient states that he was at home today and at approximately 4 PM developed a sensation of severe fatigue and generalized weakness accompanied by severe chills causing him to bundle up and sit by the fireplace. His noticed he was feeling poorly and checked his temperature with a digital thermometer which recorded a 104 F reading. She insisted that he come to the hospital immediately at that point. He describes his general fatigue, weakness and malaise as moderate to severe and his fever and chills as severe. He denies the presence of any other associated symptoms. He admits having similar symptoms on numerous occasions in the past without fever and on one occasion with fever at which time he was diagnosed with sepsis. Recently he has experienced several similar brief episodes without fever over the last 2-3 weeks and this is his second or third similar episode this week. In the emergency room he was found to have a normal evaluation with the exception of an elevated lactic acid of 3.4 and apparent new onset atrial fibrillation with rapid ventricular response. With these findings the patient was hospitalized for further evaluation and treatment. Past Medical History Cardiac Medical History: Reports: Coronary Artery Disease, Hypertension Denies: Atrial Fibrillation, Myocardial Infarction - STENT X 1 Pulmonary Medical History: Reports: Pneumonia Denies: Asthma, Bronchitis, Chronic Obstructive Pulmonary Disease (COPD) EENT Medical History: Reports: Cataracts, Eyes - Corrective lenses Neurological Medical History: Denies: Hemorrhagic CVA, Ischemic CVA, Seizures Endocrine Medical History: Reports: Obesity Denies: Diabetes Mellitus Type 1, Diabetes Mellitus Type 2, Hyperthyroidism, Hypothyroidism Renal/ Medical History: Reports: Other - Prostatic hypertrophy, bladder problems Denies: Chronic Kidney Disease, Nephrolithiasis Malignancy Medical History: Reports: None GI Medical History: Reports: Gastroesophageal Reflux Disease Denies: Cirrhosis, Hepatitis, Hiatal Hernia Musculoskeltal Medical History: Denies: Arthritis, Gout Skin Medical History: Denies: Eczema, Psoriasis Psychiatric Medical History: Denies: Alcohol Dependency, Substance Abuse, Tobacco Dependency Traumatic Medical History: Reports: None Hematology: Reports: Anemia Denies: Bleeding Tendencies Infectious Medical History: Reports: Other Infectious History Note: History of sepsis Past Surgical History Past Surgical History: Reports: Other - Cataract surgery, EGD Social History Information Source: Patient, Relative - Lives with: Spouse/Significant other Smoking Status: Former Smoker Frequency of Alcohol Use: None Hx Recreational Drug Use: No Drugs: None Hx Prescription Drug Abuse: No - Advance Directive Resuscitation Status: Full Code Surrogate healthcare decision maker:: Family History Family History: CAD, Hypertension Parental Family History Reviewed: Yes Children Family History Reviewed: No Sibling(s) Family History Reviewed.: Yes Medication/Allergy Home Medications: Isosorbide Mononitrate [Imdur 60 mg Tablet.er] 60 mg PO DAILY 12/20/16 Losartan Potassium 100 mg PO DAILY 12/20/16 Metoprolol Succinate [Toprol Xl] 25 mg PO DAILY 12/20/16 Omeprazole 20 mg PO BID 12/20/16 Oxybutynin Chloride 5 mg PO DAILY 12/20/16 Pravastatin Sodium 40 mg PO DAILY 12/20/16 Tamsulosin HCl [Flomax] 0.4 mg PO BID 12/20/16 Valacyclovir HCl [Valacyclovir] 500 mg PO BID 12/20/16 Ferrous Sulfate 325 mg PO DAILY 10/30/17 Besifloxacin HCl [Besivance 0.6% Oph Susp 5 ml] 1 drop OP ASDIR PRN 04/18/18 Difluprednate [Durezol] 5 ml OP ASDIR PRN 04/18/18 Dutasteride 0.5 mg PO DAILY 04/18/18 Prednisolone Acetate/Pf [Prednisolone Acet 1% Eye Drop] 5 ml OP ASDIR PRN 04/18/18 Allergies/Adverse Reactions: clopidogrel [From Plavix] Allergy (Verified 10/30/17 08:25) Generalized rash SEAFOOD Allergy (Uncoded 10/30/17 08:25) GI upset Review of Systems Constitutional: PRESENT: as per HPI, chills, fatigue, fever(s), weakness, other - Generalized malaise Eyes: ABSENT: visual disturbances, other - Ocular pain Ears: ABSENT: hearing changes, other - Ear pain Nose, Mouth, and Throat: ABSENT: mouth pain, sore throat Cardiovascular: ABSENT: chest pain, dyspnea on exertion, orthropnea, palpitations Respiratory: ABSENT: cough, dyspnea Gastrointestinal: ABSENT: abdominal pain, constipation, diarrhea, nausea, vomiting Genitourinary: ABSENT: dysuria, hematuria Musculoskeletal: ABSENT: deformity, joint swelling Integumentary: ABSENT: pruritus, rash Neurological: ABSENT: confusion, convulsions, focal weakness, memory loss Psychiatric: ABSENT: anxiety, depression Endocrine: ABSENT: cold intolerance, heat intolerance Hematologic/Lymphatic: ABSENT: easy bleeding, easy bruising Physical Exam Vital Signs: Temp Pulse Resp BP Pulse Ox 98.2 F 121 H 23 H 113/61 94 11/08/18 16:59 11/08/18 16:59 11/08/18 21:36 11/08/18 21:36 11/08/18 21:36 Intake & Output 11/06/18 11/07/18 11/08/18 23:59 23:59 23:59 Weight 91.626 kg General appearance: PRESENT: no acute distress, cooperative, obese Head exam: PRESENT: atraumatic, normocephalic Eye exam: PRESENT: conjunctiva pink, EOMI. ABSENT: scleral icterus Ear exam: PRESENT: normal external ear exam. ABSENT: bleeding, drainage Mouth exam: PRESENT: dry mucosa, neck supple Neck exam: ABSENT: thyromegaly, tracheal deviation Respiratory exam: PRESENT: clear to auscultation isela, symmetrical, unlabored Cardiovascular exam: PRESENT: irregular rhythm - Irregularly irregular rate and rhythm. ABSENT: clicks, gallop, rubs Vascular exam: PRESENT: normal capillary refill. ABSENT: pallor GI/Abdominal exam: PRESENT: normal bowel sounds, soft. ABSENT: tenderness Rectal exam: PRESENT: deferred Extremities exam: ABSENT: joint swelling, pedal edema Musculoskeletal exam: PRESENT: full ROM, normal inspection Neurological exam: PRESENT: alert, oriented to person, oriented to place, oriented to time, oriented to situation, CN II-XII grossly intact. ABSENT: m otor sensory deficit Psychiatric exam: PRESENT: appropriate affect, normal mood Skin exam: PRESENT: dry, intact, warm. ABSENT: jaundice, rash, urticaria Results Laboratory Results: 11/08/18 18:22 11/08/18 18:22 11/08/18 11/08/18 11/08/18 18:22 18:22 18:22 WBC 4.2 RBC 4.94 Hgb 15.0 Hct 43.7 MCV 89 MCH 30.3 MCHC 34.2 RDW 13.8 Plt Count 180 Seg Neutrophils % 89.8 H Lymphocytes % 8.6 L Monocytes % 0.6 L Eosinophils % 0.8 Basophils % 0.2 Absolute Neutrophils 3.8 Absolute Lymphocytes 0.4 L Absolute Monocytes 0.0 L Absolute Eosinophils 0.0 Absolute Basophils 0.0 VBG pH VBG pCO2 VBG HCO3 VBG Base Excess Sodium 137.1 Potassium 3.8 Chloride 100 Carbon Dioxide 24 Anion Gap 13 BUN 17 Creatinine 1.11 Est GFR ( Amer) > 60 Est GFR (Non-Af Amer) > 60 Glucose 107 Lactic Acid 3.2 H Calcium 9.6 Total Bilirubin 0.5 AST 50 ALT 55 Alkaline Phosphatase 86 Total Protein 7.4 Albumin 4.7 11/08/18 19:35 WBC RBC Hgb Hct MCV MCH MCHC RDW Plt Count Seg Neutrophils % Lymphocytes % Monocytes % Eosinophils % Basophils % Absolute Neutrophils Absolute Lymphocytes Absolute Monocytes Absolute Eosinophils Absolute Basophils VBG pH 7.39 VBG pCO2 48.3 VBG HCO3 28.4 VBG Base Excess 2.5 Sodium Potassium Chloride Carbon Dioxide Anion Gap BUN Creatinine Est GFR ( Amer) Est GFR (Non-Af Amer) Glucose Lactic Acid Calcium Total Bilirubin AST ALT Alkaline Phosphatase Total Protein Albumin 11/08/18 18:22 Troponin I < 0.012 NT-Pro-B Natriuret Pep 192 Impressions: Chest X-Ray 11/08/18 19:16 IMPRESSION: No evidence of acute cardiopulmonary disease. Assessment & Plan - Diagnosis (1) SIRS (systemic inflammatory response syndrome) Is this a current diagnosis for this admission?: Yes Plan: Patient meets criteria and for SIRS syndrome consideration due to his tachycardia, documented fever and possible endorgan damage/change with new onset atrial fibrillation. He is therefore started on meropenem 1 g IV every 8 hours pending results of blood cultures and urine culture. His vital signs and overall status to be monitored closely on the [facility] with telemetry. (2) Atrial fibrillation with rapid ventricular response Is this a current diagnosis for this admission?: Yes Plan: Patient will be continued on his Cardizem drip as it has been providing excellent control of his atrial fibrillation with rapid ventricular response since being started in the emergency room. Patient's blood pressure is doing well on his heart rate is staying in the 90-110 range. He will be converted to oral therapy by his regular hospitalist. (3) Elevated lactic acid level Is this a current diagnosis for this admission?: Yes Plan: Patient's elevated lactic acid level will be followed with serial lactic acid levels every 4 hours x3 over the course of his initial antibiotic therapy and hydration to see if there is a significant decrease attributable to hemoconcentr ation or mild nonseptic acidosis. (4) CAD (coronary artery disease) Qualifiers: Coronary Disease-Associated Artery/Lesion type: [place] artery [place] vs. transplanted heart: [place] heart Associated angina: angina presence unspecified Qualified Code(s): I25.10 - Atherosclerotic heart disease of [place] coronary artery without angina pectoris Is this a current diagnosis for this admission?: Yes Plan: Patient will be continued on his usual coronary artery disease medications as appropriate. - Time Time Spent: 50 to 70 Minutes Critical Time spent with patient: Less than 15 minutes Medications reviewed and adjusted accordingly: Yes Anticipated discharge: Home - Inpatient Certification Based on my medical assessment, after consideration of the patient's comorbidities, presenting symptoms, or acuity I expect that the services needed warrant INPATIENT care.: Yes I certify that my determination is in accordance with my understanding of Medicare's requirements for reasonable and necessary INPATIENT services [42 CFR 412.3e].: Yes Medical Necessity: Significant Comorbidiites Make Outpatient Treatment Too Risky, Need Close Monitoring Due to Risk of Patient Decompensation, Need For IV Fluids, Need For Continuous Telemetry Monitoring, Need for IV Antibiotics, Risk of Complication if Not Cared For in Hospital
[2018-11-09] MEDS: RINGERS SOLUTION,LACTATED 1,000 ML IV PRN ×3 (03:47→19:08)
[2018-11-09] MEDS ORDERED: MEROPENEM 1 GM VIAL ONE (04:06)
[2018-11-09] MEDS: MEROPENEM 1 GM in NORMAL SALINE 50 ML IV SCH ×3 (05:02→21:39)
[2018-11-09 05:31] LABS: VENOUS BLOOD BASE EXCESS -0.7 mmol/L; VENOUS BLOOD HCO3 23.7 mmol/L (20-32); VENOUS BLOOD PCO2 38.5 mmHg (35-63); VENOUS BLOOD PH 7.41 (7.30-7.42)
[2018-11-09 05:43] LABS: ANION GAP 12 (5-19); BLOOD UREA NITROGEN 15 mg/dL (7-20); CALCIUM 9.4 mg/dL (8.4-10.2); CARBON DIOXIDE 20 mmol/L (22-30); CHLORIDE 105 mmol/L (98-107); CHOLESTEROL 94.07 mg/dL (0-200); CREATINE KINASE 128 U/L (55-170); GLUCOSE 134 mg/dL (75-110); POTASSIUM 4.3 mmol/L (3.6-5.0); SODIUM 137.4 mmol/L (137-145); TRIGLYCERIDES 90 mg/dL (<150)
[2018-11-09 05:54] LABS: DIRECT LDL 54 mg/dL (<100)
[2018-11-09 05:58] LABS: HEMATOCRIT 42.4 % (37.9-51.0); HEMOGLOBIN 14.1 g/dL (13.5-17.0); MEAN CORPUSCULAR HEMOGLOBIN 29.5 pg (27.0-33.4); MEAN CORPUSCULAR HGB CONC 33.3 g/dL (32.0-36.0); MEAN CORPUSCULAR VOLUME 89 fl (80-97); PLATELET COUNT 159 10^3/uL (150-450); RED BLOOD COUNT 4.79 10^6/uL (4.35-5.55); RED CELL DISTRIBUTION WIDTH 13.9 % (11.5-14.0)
[2018-11-09 06:07] LABS: CREATINE KINASE MB 0.97 ng/mL (<4.55); WHITE BLOOD COUNT 22.1 10^3/uL (4.0-10.5)
[2018-11-09 06:11] LABS: TROPONIN I < 0.012 ng/mL
[2018-11-09 06:12] LABS: ABSOLUTE LYMPHOCYTES# (MANUAL) 0.7 10^3/uL (0.5-4.7); ABSOLUTE MONOCYTES # (MANUAL) 0.7 10^3/uL (0.1-1.4); ABSOLUTE NEUTROPHILS# (MANUAL) 20.8 10^3/uL (1.7-8.2); BAND NEUTROPHILS % (MANUAL) 1 % (3-5); BASOPHILS % (MANUAL) 0 % (0-2); EOSINOPHILS % (MANUAL) 0 % (0-6); LYMPHOCYTES % (MANUAL) 3 % (13-45); MONOCYTES % (MANUAL) 3 % (3-13); SEGMENTED NEUTROPHILS % (MAN) 93 % (42-78); TOTAL CELLS COUNTED 100
[2018-11-09 06:14] LABS: OVALOCYTES SLIGHT; POIKILOCYTOSIS SLIGHT; TEAR DROP CELLS SLIGHT; TOXIC VACUOLATION PRESENT
[2018-11-09 06:15] LABS: PLATELET COMMENT ADEQUATE; TOXIC GRANULATION SLIGHT
[2018-11-09 06:31] LABS: FREE T3 2.8 pg/mL (2.77-5.27); FREE T4 (FREE THYROXINE) 1.02 ng/dL (0.78-2.19)
[2018-11-09 06:45] LABS: THYROID STIMULATING HORMONE 0.81 uIU/mL (0.47-4.68)
[2018-11-09] MEDS ORDERED: DUTASTERIDE 0.5 MG CAPSULE PO SCH ×2 (10:00→11:00)
[2018-11-09] MEDS ORDERED: FERROUS SULFATE 325 MG TABLET PO SCH (10:00)
[2018-11-09] MEDS ORDERED: FAMOTIDINE 20 MG TABLET PO SCH (10:00)
[2018-11-09] MEDS ORDERED: METOPROLOL SUCCINATE 25 MG TAB.SR.24H PO SCH ×2 (10:00→10:45)
[2018-11-09] MEDS ORDERED: ISOSORBIDE MONONITRATE 60 MG TAB.ER.24H PO SCH (10:00)
[2018-11-09] MEDS ORDERED: TAMSULOSIN HCL 0.4 MG CAP.SR.24H PO SCH (10:00)
[2018-11-09] MEDS: VALACYCLOVIR HCL 500 MG TABLET PO SCH ×2 (10:30→17:24)
[2018-11-09] MEDS: FONDAPARINUX SODIUM INJ 2.5 MG/0.5 ML DISP.SYRIN SUBCUT SCH (10:31)
[2018-11-09] MEDS: DOCUSATE SODIUM 100 MG CAPSULE PO SCH ×2 (10:31→17:24)
[2018-11-09] MEDS: LOSARTAN POTASSIUM 50 MG TABLET PO SCH (10:31)
[2018-11-09 11:00] LABS: TROPONIN I < 0.012 ng/mL
[2018-11-09] MEDS ORDERED: LOSARTAN POTASSIUM 50 MG TABLET PO SCH (12:00)
[2018-11-09] MEDS: VANCOMYCIN HCL 1,000 MG in DEXTROSE 5%-WATER 250 ML IV SCH ×2 (12:23→21:44)
[2018-11-09] MEDS ORDERED: ASPIRIN 81 MG TABLET, ENT COATED PO SCH (12:30)
[2018-11-09] MEDS: CETIRIZINE 10 MG TABLET PO SCH (13:42)
[2018-11-09] MEDS: DUTASTERIDE 0.5 MG CAPSULE PO SCH (13:42)
--- NOTE | 2018-11-09 14:25 | PDOC PROGRESS REPORT ---
Subjective Progress Note for:: 11/09/18 Subjective:: The patient was seen earlier today on rounds. The patient states that he feels much better when he came in and feels that he has returned to his baseline. Patient denies any letters or chest pain. Denies any previous history of A. fib. The patient has not established with cardiology since moving to the area. The patient denies any nausea, vomiting, diarrhea, shortness of breath, dizziness, chest pain, heart palpitations, fevers, or chills. The patient has r emained afebrile. Blood pressures have been in a good range. When prompted the patient voices no other concerns at this time. Review of systems: The rest of the review of systems is negative. Brief history: The patient was admitted last night due to rigors. After presenting to the emergency department the patient was found to be septic and in atrial fibrillation with rapid ventricular response. The patient was started on a Cardizem drip and very quickly converted to sinus rhythm. Patient was hydrated and was covered with meropenem. She has blood cultures have grown out gram-negative rods as well as 1 bottle has gram-positive cocci. The patient was septic on presentation I went ahead and cover with vancomycin until cultures can be finalized. The patient feels tremendously better. This is the patient's initial presentation with atrial fibrillation I have consulted cardiology. Reason For Visit: ATRIAL FIBRILLATION WITH RAPID VENTRICULAR RESPONS Physical Exam Vital Signs: Temp Pulse Resp BP Pulse Ox 98.7 F 78 20 124/54 L 92 11/09/18 11:46 11/09/18 11:46 11/09/18 11:46 11/09/18 11:46 11/09/18 11:46 Intake & Output 11/07/18 11/08/18 11/10/18 23:59 23:59 00:59 Intake Total 1000 2394 Output Total 325 Balance 1000 2069 Weight 91.626 kg General appearance: PRESENT: no acute distress, well-developed, well-nourished Head exam: PRESENT: atraumatic, normocephalic Eye exam: PRESENT: conjunctiva pink, EOMI, PERRLA. ABSENT: scleral icterus Ear exam: PRESENT: normal external ear exam Mouth exam: PRESENT: moist, tongue midline Neck exam: ABSENT: carotid bruit, JVD, lymphadenopathy, thyromegaly Respiratory exam: PRESENT: clear to auscultation isela. ABSENT: rales, rhonchi, wheezes Cardiovascular exam: PRESENT: RRR. ABSENT: diastolic murmur, rubs, systolic murmur Pulses: PRESENT: normal dorsalis pedis pul Vascular exam: PRESENT: normal capillary refill GI/Abdominal exam: PRESENT: normal bowel sounds, soft. ABSENT: distended, guarding, mass, organolmegaly, rebound, tenderness Rectal exam: PRESENT: deferred Extremities exam: PRESENT: full ROM. ABSENT: calf tenderness, clubbing, pedal edema Neurological exam: PRESENT: alert, awake, oriented to person, oriented to place, oriented to time, oriented to situation, CN II-XII grossly intact. ABSENT: motor sensory deficit Psychiatric exam: PRESENT: appropriate affect, normal mood. ABSENT: homicidal ideation, suicidal ideation Skin exam: PRESENT: dry, intact, warm. ABSENT: cyanosis, rash Results Laboratory Results: Labs- Last Values WBC 22.1 10^3/uL (4.0-10.5) H D 11/09/18 05:08 RBC 4.79 10^6/uL (4.35-5.55) 11/09/18 05:08 Hgb 14.1 g/dL (13.5-17.0) 11/09/18 05:08 Hct 42.4 % (37.9-51.0) 11/09/18 05:08 MCV 89 fl (80-97) 11/09/18 05:08 MCH 29.5 pg (27.0-33.4) 11/09/18 05:08 MCHC 33.3 g/dL (32.0-36.0) 11/09/18 05:08 RDW 13.9 % (11.5-14.0) 11/09/18 05:08 Plt Count 159 10^3/uL (150-450) 11/09/18 05:08 Total Counted 100 11/09/18 05:08 Seg Neutrophils % Not Reportable 11/09/18 05:08 Seg Neuts % (Manual) 93 % (42-78) H 11/09/18 05:08 Band Neutrophils % 1 % (3-5) L 11/09/18 05:08 Lymphocytes % Not Reportable 11/09/18 05:08 Lymphocytes % (Manual) 3 % (13-45) L 11/09/18 05:08 Monocytes % Not Reportable 11/09/18 05:08 Monocytes % (Manual) 3 % (3-13) 11/09/18 05:08 Eosinophils % Not Reportable 11/09/18 05:08 Eosinophils % (Manual) 0 % (0-6) 11/09/18 05:08 Basophils % Not Reportable 11/09/18 05:08 Basophils % (Manual) 0 % (0-2) 11/09/18 05:08 Absolute Neutrophils Not Reportable 11/09/18 05:08 Abs Neuts (Manual) 20.8 10^3/uL (1.7-8.2) H 11/09/18 05:08 Absolute Lymphocytes Not Reportable 11/09/18 05:08 Abs Lymphs (Manual) 0.7 10^3/uL (0.5-4.7) 11/09/18 05:08 Absolute Monocytes Not Reportable 11/09/18 05:08 Abs Monocytes (Manual) 0.7 10^3/uL (0.1-1.4) 11/09/18 05:08 Absolute Eosinophils Not Reportable 11/09/18 05:08 Absolute Eos (Manual) 0.0 10^3/uL (0.0-0.6) 11/09/18 05:08 Absolute Basophils Not Reportable 11/09/18 05:08 Abs Basophils (Manual) 0.0 10^3/uL (0.0-0.2) 11/09/18 05:08 Toxic Granulation SLIGHT 11/09/18 05:08 Toxic Vacuolation PRESENT 11/09/18 05:08 Platelet Comment ADEQUATE 11/09/18 05:08 Poikilocytosis SLIGHT 11/09/18 05:08 Tear Drop Cells SLIGHT 11/09/18 05:08 Ovalocytes SLIGHT 11/09/18 05:08 PT 14.1 SEC (11.4-15.4) 11/08/18 18:22 INR 1.04 11/08/18 18:22 APTT 27.7 SEC (23.5-35.8) 11/08/18 18:22 VBG pH 7.41 (7.30-7.42) 11/09/18 05:08 VBG pCO2 38.5 mmHg (35-63) 11/09/18 05:08 VBG HCO3 23.7 mmol/L (20-32) 11/09/18 05:08 VBG Base Excess -0.7 mmol/L 11/09/18 05:08 Sodium 137.4 mmol/L (137-145) 11/09/18 05:08 Potassium 4.3 mmol/L (3.6-5.0) 11/09/18 05:08 Chloride 105 mmol/L (98-107) 11/09/18 05:08 Carbon Dioxide 20 mmol/L (22-30) L 11/09/18 05:08 Anion Gap 12 (5-19) 11/09/18 05:08 BUN 15 mg/dL (7-20) 11/09/18 05:08 Creatinine 1.07 mg/dL (0.52-1.25) 11/09/18 05:08 Est GFR ( Amer) > 60 (>60) 11/09/18 05:08 Est GFR (Non-Af Amer) > 60 (>60) 11/09/18 05:08 Glucose 134 mg/dL (75-110) H 11/09/18 05:08 Lactic Acid 2.7 mmol/L (0.7-2.1) H 11/09/18 05:08 Calcium 9.4 mg/dL (8.4-10.2) 11/09/18 05:08 Magnesium 1.8 mg/dL (1.6-2.3) 11/09/18 05:08 Total Bilirubin 0.5 mg/dL (0.2-1.3) 11/08/18 18:22 Direct Bilirubin 0.2 mg/dL (0.0-0.4) 11/08/18 18:22 Neonat Total Bilirubin Not Reportable 11/08/18 18:22 Neonat Direct Bilirubin Not Reportable 11/08/18 18:22 Neonat Indirect Bili Not Reportable 11/08/18 18:22 AST 50 U/L (17-59) 11/08/18 18:22 ALT 55 U/L (21-72) 11/08/18 18:22 Alkaline Phosphatase 86 U/L (38-126) 11/08/18 18:22 Creatine Kinase 112 U/L (55-170) 11/09/18 10:20 CK-MB (CK-2) 0.90 ng/mL (<4.55) 11/09/18 10:20 Troponin I < 0.012 ng/mL 11/09/18 10:20 NT-Pro-B Natriuret Pep 192 pg/mL (<450) 11/08/18 18:22 Total Protein 7.4 g/dL (6.3-8.2) 11/08/18 18:22 Albumin 4.7 g/dL (3.5-5.0) 11/08/18 18:22 Triglycerides 90 mg/dL (<150) 11/09/18 05:08 Cholesterol 94.07 mg/dL (0-200) 11/09/18 05:08 LDL Cholesterol Direct 54 mg/dL (<100) 11/09/18 05:08 VLDL Cholesterol 18.0 mg/dL (10-31) 11/09/18 05:08 HDL Cholesterol 31 mg/dL (>40) L 11/09/18 05:08 TSH 0.81 uIU/mL (0.47-4.68) 11/09/18 05:08 Free T4 1.02 ng/dL (0.78-2.19) 11/09/18 05:08 Free T3 pg/mL 2.80 pg/mL (2.77-5.27) 11/09/18 05:08 Urine Color YELLOW 11/08/18 22:25 Urine Appearance SLIGHTLY-CLOUDY 11/08/18 22:25 Urine pH 6.0 (5.0-9.0) 11/08/18 22:25 Ur Specific [place] 1.013 11/08/18 22:25 Urine Protein NEGATIVE mg/dL (NEGATIVE) 11/08/18 22:25 Urine Glucose (UA) NEGATIVE mg/dL (NEGATIVE) 11/08/18 22:25 Urine Ketones NEGATIVE mg/dL (NEGATIVE) 11/08/18 22:25 Urine Blood NEGATIVE (NEGATIVE) 11/08/18 22:25 Urine Nitrite NEGATIVE (NEGATIVE) 11/08/18 22:25 Urine Bilirubin NEGATIVE (NEGATIVE) 11/08/18 22:25 Urine Urobilinogen NEGATIVE mg/dL (<2.0) 11/08/18 22:25 Ur Leukocyte Esterase NEGATIVE (NEGATIVE) 11/08/18 22:25 Urine WBC (Auto) 1 /HPF 11/08/18 22:25 Urine RBC (Auto) 0 /HPF 11/08/18 22:25 U Hyaline Cast (Auto) 1 /LPF 11/08/18 22:25 Urine Mucus (Auto) OCC /LPF 11/08/18 22:25 Urine Ascorbic Acid NEGATIVE (NEGATIVE) 11/08/18 22:25 Influenza A (Rapid) NEGATIVE (NEGATIVE) 11/08/18 18:54 Influenza B (Rapid) NEGATIVE (NEGATIVE) 11/08/18 18:54 Impressions: Chest X-Ray 11/08/18 19:16 IMPRESSION: No evidence of acute cardiopulmonary disease. Assessment & Plan - Diagnosis (1) Gram-negative bacteremia Is this a current diagnosis for this admission?: Yes Plan: Possible urinary source. Patient is a covered appropriately with meropenem. Patient did have gram-positive cocci growing in 1 bottle until this finalizes will also continue vancomycin. (2) Sepsis Qualifiers: Sepsis type: sepsis due to unspecified organism Qualified Code(s): A41.9 - Sepsis, unspecified organism Is this a current diagnosis for this admission?: Yes Plan: Secondary to #1 and present on admission. Lactic acid is trending down. We will continue to monitor closely. Selected Entries 11/08/18 16:59 Pulse Rate 121 H 11/09/18 05:08 WBC 22.1 H D Band Neutrophils % 1 L 11/08/18 19:35 Blood Culture - Preliminary Blood Gram Negative Rods 11/08/18 18:22 Blood Culture - Preliminary Blood Gram Positive Cocci Gram Negative Rods (3) Atrial fibrillation with rapid ventricular response Is this a current diagnosis for this admission?: Yes Plan: Most likely triggered by the patient's septic state. Patient very easily converted. I have resumed the patient's home metoprolol will defer anticoagulation to cardiology. (4) Coronary artery disease Qualifiers: Coronary Disease-Associated Artery/Lesion type: [place] artery [place] vs. transplanted heart: [place] heart Associated angina: without angina Qualified Code(s): I25.10 - Atherosclerotic heart disease of [place] coronary artery without angina pectoris Is this a current diagnosis for this admission?: Yes Plan: Currently holding nitrate in the event the patient decompensates to give us some pressure to work with. - Time Time Spent with patient: 35 or more minutes Medications reviewed and adjusted accordingly: Yes Anticipated discharge: Home Within: within 48 hours Disposition: The patient is a full code. Pending patient's symptomatology and diagnostic findings will reevaluate in the a.m.
--- NOTE | 2018-11-09 16:33 | PDOC CONSULTATION ---
Consultation-Blank Consultation: CARDIOLOGY CONSULTATION by Dr. Marry Castillo on 11/09/2018. Patient seen at 8 AM on 11/09/2018. 60 minutes spent on this patient with more than 50% of time spent on direct patient care. REASON FOR CONSULTATION: Patient with history of coronary artery disease, history of stent to the circumflex in 2007, admitted with paroxysmal atrial fibrillation, which is the first clinical episode.. For assessment of cardiac status. history PRESENT ILLNESS: Patient with history of hypertension and coronary artery disease and diet-controlled diabetes mellitus, and mild obesity, admitted with symptoms of fatigue and weakness and fever, in the emergency room he was found to have elevated lactic acid levels, and also was seen in atrial fibrillation with rapid ventricular response. The patient did he received IV Cardizem bolus, and placed on metoprolol. He was also given IV fluids and antibiotics. The patient spontaneously converted to sinus rhythm. The patient is not aware of any palpitations even when his heart rate was fast. There is no prior history of atrial fibrillation. The patient denies any chest pain or discomfort. There was some shortness of breath, but no PND orthopnea or leg edema. There is no TIA CVA symptoms. At present the patient is comfortable and is in sinus rhythm. The patient denies any cough or sputum production. There is no wheezing. There is no symptoms of urinary tract infection. PAST MEDICAL HISTORY: The patient has a history of hypertension. He has a history of coronary artery disease. In 2017November 20, the patient had a stent put into left circumflex. He states he has never had an NC. Since then the patient has not had any anginal symptoms. He has not had a stress test in several years. He has no history of atrial fibrillation or any other cardiac arrhythmia. This is the first episode of atrial fibrillation, but the patient has been asymptomatic and did not feel any fluttering with this. He has a history of hyperlipidemia. There is no history of syncope. The patient states he is a diet-controlled diabetic. There is no history of thyroid disease. There is no history of TIA CVA. There is no history of anxiety or depression. There is no history of asthma and COPD or sleep apnea or pulmonary embolism. PAST SURGICAL HISTORY: Cardiac catheterization and stent placement. FAMILY HISTORY: Is positive for hypertension coronary artery disease. ALLERGIES: He is allergic to Plavix. SOCIAL HISTORY: The patient is a non-smoker. There is no history of EtOH abuse. DISPOSITION: The patient is a full code. His is his surrogate healthcare decision maker. REVIEW SYSTEMS: CONSTITUTIONAL complaints of fever chills and rigors. His tem perature was noted to be 104 F. At present is afebrile. He has generalized fatigue and generalized weakness. HEAD: No history of headaches or head injury. EYES: No history of amblyopia, or diplopia. No history of amaurosis fugax. The EARS: No history of hearing loss. No history of tinnitus. No history of recurrent ear infections. No vertigo. NOSE: No history of hayfever. No history of nosebleeds. No history of nasal polyposis. MOUTH: No history of altered taste sensation. No ulcers in the mouth. No bleeding from the gums. THROAT: No history of odynophagia or dysphagia. No recurrent sore throats. SKIN: No history of pruritus. No history of yellowish discoloration of the skin. No psoriasis. NECK: No history of neck pain. No symptoms of C-spine arthritis. No goiter. No lymphadenopathy. LUNGS: No history of cough or sputum production or wheezing. No history of asthma or COPD. No history of sleep apnea. No history of pulmonary embolism. No hemoptysis. No pleuritic chest pain. HEART: History of hypertension present. History of coronary artery disease with stent placement in the left circumflex in 2007. No anginal symptoms. No history of congestive heart failure. No prior history of cardiac arrhythmia that is the first episode of paroxysmal atrial fibrillation. No history of PND orthopnea or leg edema. GI: No history of GERD. The patient in 2018 had anemia, and although he had no GI bleed, the patient underwent a colonoscopy which showed diverticulosis and internal hemorrhoids. There is no history of fatty food intolerance. No history of decreased or increased appetite. RENAL: No history of chronic kidney disease. No symptoms a UTI. No history of hematuria pyuria or dysuria. No diarrhea. ENDOCRINE: No history of thyroid disease. History of diet-controlled diabetes mellitus. There is no no history of polydipsia or polyuria. No history of heat or cold intolerance. MUSCULOSKELETAL: No history of arthritis or collagen vascular disease. 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 No history of headaches migraines or seizures. PSYCHIATRIC: Patient has no anxiety or depression. No suicidal or homicidal ideation. HEMATOLOGICAL: No history of bleeding diathesis. No history of clotting disorders. VASCULAR: No history of calf or buttock claudication. No history of DVT. PHYSICAL EXAMINATION: The patient is mildly obese. In no acute distress. He is well-groomed. He is comfortable lying flat on the bed, without orthopnea. Selected Entries 11/09/18 07:53 Temperature 98.6 F Temperature Oral Source Pulse Rate 74 Respiratory 18 Rate Blood Pressure 135/67 H Blood Pressure 89 Mean BP Location Right Arm BP Position Supine O2 Sat by Pulse 93 Oximetry Oxygen Delivery Room Air Method HEAD: Is atraumatic normocephalic. EYES: Pupils equal round regular react to light accommodation. There is no conjunctival pallor. There is no scleral icterus present. EARS: Tympanic memories are intact. External auditory canals are clear. NOSE: There is no deviated nasal septum. There is no inflammation of the nasal mucous membrane. MOUTH: Mucous membranes of mouth are moist. Tongue is moist. There is no ulcers in the mouth. There is no bleeding from the gums. THROAT: There is no redness of the oropharynx. There is no exudates. SKIN: There is no particular ecchymosis. There is no skin rash or skin lesions. NECK: Is supple. There is no JVD. Carotids are equal there is no bruits. There is no lymphadenopathy. There is no goiter. There is no accessory muscle respiration use. Trachea central. LUNGS: Is clear to auscultation percussion without any rhonchi rales or wheezing. On palpation there is no chest wall tenderness. HEART: S1-S2 is heard S1 is of normal intensity. There is no S3 gallop. There is no S4 gallop. There is systolic murmur left sternal border and the apex without radiation. There is no rub. ABDOMEN: Is mildly obese. There is no hepatosplenomegaly. Bowel sounds are well heard. There is no tender areas masses. There is no rebound guarding or rigidity. HYDRAULIC CORRUGATING MACHINE OPERATOR: The patient is conscious awake alert oriented x3 with no focal deficits. PSYCHIATRIC: The patient judgment and insight are intact his affect is normal. 11/09/18 01:00 Urine Culture - Pending Clean Catch Midstream 11/08/18 19:35 Blood Culture - Preliminary Blood Gram Negative Rods 11/08/18 18:22 Blood Culture - Preliminary Blood Gram Positive Cocci Gram Negative Rods Current Medications Generic Name Dose Route Start Last Admin Trade Name Freq PRN Reason Stop Dose Admin Acetaminophen 650 mg 11/08/18 21:39 Tylenol 325 Mg Tablet PO 12/08/18 21:38 Q4HP PRN For headache, pain or fever Al Hydrox/Mg Hydrox/Simethicone 30 ml 11/08/18 21:24 Maalox Plus Susp 30 Udcup PO 12/08/18 21:23 Q6HP PRN HEARTBURN Aspirin 325 mg 11/10/18 10:00 Aspirin 325 Mg Tablet PO 12/10/18 09:59 DAILY SUDHIR Atorvastatin Calcium 10 mg 11/09/18 22:00 Lipitor 10 Mg Tablet PO 12/09/18 21:59 QHS SUDHIR Cetirizine HCl 10 mg 11/09/18 13:00 11/09/18 13:42 Zyrtec 10 Mg Tablet PO 12/09/18 12:59 10 mg DAILY SUDHIR Administration Docusate Sodium 100 mg 11/09/18 10:00 11/09/18 10:31 Colace 100 Mg Capsule PO 12/09/18 09:59 100 mg BID SUDHIR Administration Dutasteride 0.5 mg 11/09/18 13:00 11/09/18 13:42 Avodart Lf 0.5 Mg Capsule PO 12/09/18 12:59 0.5 mg DAILY SUDHIR Administration Ferrous Sulfate 325 mg 11/10/18 10:00 Feosol 325 Mg Tablet PO 12/10/18 09:59 DAILY SUDHIR Fondaparinux 2.5 mg 11/09/18 08:00 11/09/18 10:31 Arixtra Inj 2.5 Mg/0.5 Ml Disp.Syrin SUBCUT 12/09/18 07:59 2.5 mg QAM SUDHIR Administration Lactated Ringer's 1,000 mls @ 167 mls/hr 11/08/18 21:37 11/09/18 10:31 Lactated Ringers 1000 Ml Iv Soln IV 12/08/18 21:36 167 mls/hr CONTINUOUS PRN Administration THIS MED IS NOT "PRN" Meropenem 1 gm/ Sodium 50 mls @ 100 mls/hr 11/09/18 06:00 11/09/18 15:04 Chloride IV 11/16/18 05:59 Infused Q8 SUDHIR Infusion Vancomycin HCl 1,000 mg/ 250 mls @ 166.667 mls/hr 11/09/18 11:30 11/09/18 14:06 Dextrose IV 11/16/18 11:29 Infused Q12 SUDHIR Infusion Lansoprazole 15 mg 11/10/18 06:00 Prevacid 15 Mg Odt Tablet PO 12/10/18 05:59 Q6AM SUDHIR Losartan Potassium 100 mg 11/09/18 10:00 11/09/18 10:31 Cozaar 50 Mg Tablet PO 12/09/18 09:59 100 mg DAILY SUDHIR Administration Magnesium Hydroxide 30 ml 11/08/18 21:24 Milk Of Magnesia 30 Ml Udcup PO 12/08/18 21:23 HSP PRN FOR CONSTIPATION Sodium Chloride 2.5 ml 11/09/18 06:00 11/09/18 13:43 Saline Flush 2.5 Ml Monoject Prefil Syrin IV 12/09/18 05:59 Not Given Q8 SUDHIR Sotalol HCl 40 mg 11/09/18 18:00 Betapace 80 Mg Tablet PO 12/09/18 17:59 Q12 SUDHIR Tamsulosin HCl 0.4 mg 11/09/18 18:00 Flomax 0.4 Mg Cap.Sr PO 12/09/18 17:59 BID SUDHIR Temazepam 15 mg 11/08/18 21:24 Restoril 15 Mg Capsule PO 11/15/18 21:23 HSP PRN SLEEP OR INSOMNIA Valacyclovir HCl 500 mg 11/09/18 18:00 Valtrex 500 Mg Tablet PO 12/09/18 17:59 BID SUDHIR Discontinued Medications Generic Name Dose Route Start Last Admin Trade Name Freq PRN Reason Stop Dose Admin Aspirin 81 mg 11/09/18 12:30 11/09/18 13:42 Ecotrin 81 Mg Ec Tablet PO 12/09/18 12:29 81 mg DAILY SUDHIR Administration Diltiazem HCl 10 mg 11/08/18 19:15 11/08/18 19:38 Cardizem Inj 25 Mg/5 Ml Vial IV 11/08/18 19:16 10 mg NOW ONE Administration Dutasteride 0.5 mg 11/09/18 10:00 11/09/18 12:11 Avodart Lf 0.5 Mg Capsule PO 12/09/18 09:59 Not Given DAILY SUDHIR Dutasteride 0.5 mg 11/09/18 11:00 Avodart Lf 0.5 Mg Capsule PO 12/09/18 10:59 DAILY SUDHIR Famotidine 20 mg 11/09/18 10:00 11/09/18 10:31 Pepcid 20 Mg Tablet PO 12/09/18 09:59 20 mg Q12 SUDHIR Administration Famotidine 20 mg 11/08/18 23:59 11/09/18 00:57 Pepcid 20 Mg Tablet PO 11/09/18 00:00 20 mg NOW ONE Administration Ferrous Sulfate 325 mg 11/09/18 10:00 11/09/18 10:31 Feosol 325 Mg Tablet PO 12/09/18 09:59 325 mg DAILY SUDHIR Administration Lactated Ringer's 1,000 mls @ 0 mls/hr 11/08/18 18:30 11/08/18 23:33 Lactated Ringers 1000 Ml Iv Soln IV 11/08/18 18:31 Infused BOLUS ONE Infusion Wide Open Diltiazem HCl 125 mg in 125 mls @ 0 mls/hr 11/08/18 19:15 11/09/18 07:09 Cardizem Rtu Inj 125 Mg-D5w 125 Ml Premix IV 12/08/18 19:14 Infused CONTINUOUS PRN Titration THIS MED IS NOT "PRN" Protocol Titrate Sodium Chloride 1,000 mls @ 0 mls/hr 11/08/18 20:45 11/08/18 20:58 Nacl 0.9% 1000 Ml Iv Soln IV 11/08/18 20:46 Not Given BOLUS ONE Wide Open Sodium Chloride 1,000 mls @ 150 mls/hr 11/08/18 20:50 11/09/18 03:42 Nacl 0.9% 1000 Ml Iv Soln IV 11/09/18 03:29 Infused NOW ONE Infusion Meropenem 1 gm/ Sodium 50 mls @ 100 mls/hr 11/08/18 23:30 11/09/18 00:55 Chloride IV 11/08/18 23:59 Infused NOW ONE Infusion Isosorbide Mononitrate 60 mg 11/09/18 10:00 11/09/18 10:31 Imdur 60 Mg Tablet.Er PO 12/09/18 09:59 60 mg DAILY SUDHIR Administration Meropenem 1 gm 11/08/18 21:45 Merrem 1 Gm Vial IV 11/09/18 08:00 ASDIR PRN Meropenem Confirm 11/09/18 04:06 11/09/18 04:17 Merrem 1 Gm Vial Administered 11/09/18 04:07 Not Given Dose 1 gm .ROUTE .STK-MED ONE Metoprolol Succinate 25 mg 11/09/18 10:00 11/09/18 10:31 Toprol Xl 25 Mg Tab.Sr PO 12/09/18 09:59 25 mg DAILY SUDHIR Administration Metoprolol Succinate 25 mg 11/09/18 10:45 Toprol Xl 25 Mg Tab.Sr PO 12/09/18 10:44 DAILY SUDHIR Metoprolol Succinate 25 mg 11/10/18 10:00 Toprol Xl 25 Mg Tab.Sr PO 12/10/18 09:59 DAILY SUDHIR Ondansetron HCl 4 mg 11/08/18 21:24 Zofran Inj/Pf 4 Mg/2 Ml Sdv IV 12/08/18 21:23 Q4HP PRN FOR NAUSEA/VOMITING Ondansetron HCl 4 mg 11/08/18 21:24 Zofran Odt 4 Mg Tablet PO 12/08/18 21:23 Q4HP PRN FOR NAUSEA/VOMITING Tamsulosin HCl 0.4 mg 11/09/18 10:00 11/09/18 10:31 Flomax 0.4 Mg Cap.Sr PO 12/09/18 09:59 0.4 mg BID SUDHIR Administration HOME MEDICATIONS: Aspirin [Ecotrin 81 mg EC Tablet] 81 mg PO DAILY 11/09/18 Cetirizine HCl [Zyrtec 10 mg Tablet] 10 mg PO DAILY 11/09/18 Dutasteride [Avodart Lf 0.5 mg Capsule] 0.5 mg PO DAILY 11/09/18 Ferrous Sulfate [Feosol 325 mg Tablet] 325 mg PO DAILY 11/09/18 Isosorbide Mononitrate [Imdur 60 mg Tablet.er] 60 mg PO DAILY 11/09/18 Losartan Potassium [Cozaar 100 mg Tablet] 100 mg PO DAILY 11/09/18 Metoprolol Succinate [Toprol Xl 25 mg Tab.sr] 25 mg PO DAILY 11/09/18 Omeprazole 20 mg PO DAILY 11/09/18 Oxybutynin Chloride [Ditropan 5 mg Tablet] 5 mg PO DAILY 11/09/18 Pravastatin Sodium [Pravachol] 40 mg PO QHS 11/09/18 Tamsulosin HCl [Flomax 0.4 mg Cap.sr] 0.4 mg PO BID 11/09/18 Valacyclovir HCl [Valtrex 500 mg Tablet] 500 mg PO BID 11/09/18 Labs- Entire Visit 11/08/18 11/08/18 11/08/18 18:22 18:22 18:22 WBC 4.2 RBC 4.94 Hgb 15.0 Hct 43.7 MCV 89 MCH 30.3 MCHC 34.2 RDW 13.8 Plt Count 180 Total Counted Seg Neutrophils % 89.8 H Seg Neuts % (Manual) Band Neutrophils % Lymphocytes % 8.6 L Lymphocytes % (Manual) Monocytes % 0.6 L Monocytes % (Manual) Eosinophils % 0.8 Eosinophils % (Manual) Basophils % 0.2 Basophils % (Manual) Absolute Neutrophils 3.8 Abs Neuts (Manual) Absolute Lymphocytes 0.4 L Abs Lymphs (Manual) Absolute Monocytes 0.0 L Abs Monocytes (Manual) Absolute Eosinophils 0.0 Absolute Eos (Manual) Absolute Basophils 0.0 Abs Basophils (Manual) Toxic Granulation Toxic Vacuolation Platelet Comment Poikilocytosis Tear Drop Cells Ovalocytes PT INR APTT VBG pH VBG pCO2 VBG HCO3 VBG Base Excess Sodium 137.1 Potassium 3.8 Chloride 100 Carbon Dioxide 24 Anion Gap 13 BUN 17 Creatinine 1.11 Est GFR ( Amer) > 60 Est GFR (Non-Af Amer) > 60 Glucose 107 Lactic Acid 3.2 H Calcium 9.6 Magnesium Total Bilirubin 0.5 Direct Bilirubin 0.2 Neonat Total Bilirubin Not Reportable Neonat Direct Bilirubin Not Reportable Neonat Indirect Bili Not Reportable AST 50 ALT 55 Alkaline Phosphatase 86 Creatine Kinase CK-MB (CK-2) Troponin I NT-Pro-B Natriuret Pep Total Protein 7.4 Albumin 4.7 Triglycerides Cholesterol LDL Cholesterol Direct VLDL Cholesterol HDL Cholesterol TSH Free T4 Free T3 pg/mL Urine Color Urine Appearance Urine pH Ur Specific [place] Urine Protein Urine Glucose (UA) Urine Ketones Urine Blood Urine Nitrite Urine Bilirubin Urine Urobilinogen Ur Leukocyte Esterase Urine WBC (Auto) Urine RBC (Auto) U Hyaline Cast (Auto) Urine Mucus (Auto) Urine Ascorbic Acid Influenza A (Rapid) Influenza B (Rapid) 11/08/18 11/08/18 11/08/18 18:22 18:22 18:54 WBC RBC Hgb Hct MCV MCH MCHC RDW Plt Count Total Counted Seg Neutrophils % Seg Neuts % (Manual) Band Neutrophils % Lymphocytes % Lymphocytes % (Manual) Monocytes % Monocytes % (Manual) Eosinophils % Eosinophils % (Manual) Basophils % Basophils % (Manual) Absolute Neutrophils Abs Neuts (Manual) Absolute Lymphocytes Abs Lymphs (Manual) Absolute Monocytes Abs Monocytes (Manual) Absolute Eosinophils Absolute Eos (Manual) Absolute Basophils Abs Basophils (Manual) Toxic Granulation Toxic Vacuolation Platelet Comment Poikilocytosis Tear Drop Cells Ovalocytes PT 14.1 INR 1.04 APTT 27.7 VBG pH VBG pCO2 VBG HCO3 VBG Base Excess Sodium Potassium Chloride Carbon Dioxide Anion Gap BUN Creatinine Est GFR ( Amer) Est GFR (Non-Af Amer) Glucose Lactic Acid Calcium Magnesium Total Bilirubin Direct Bilirubin Neonat Total Bilirubin Neonat Direct Bilirubin Neonat Indirect Bili AST ALT Alkaline Phosphatase Creatine Kinase CK-MB (CK-2) Troponin I < 0.012 NT-Pro-B Natriuret Pep 192 Total Protein Albumin Triglycerides Cholesterol LDL Cholesterol Direct VLDL Cholesterol HDL Cholesterol TSH Free T4 Free T3 pg/mL Urine Color Urine Appearance Urine pH Ur Specific [place] Urine Protein Urine Glucose (UA) Urine Ketones Urine Blood Urine Nitrite Urine Bilirubin Urine Urobilinogen Ur Leukocyte Esterase Urine WBC (Auto) Urine RBC (Auto) U Hyaline Cast (Auto) Urine Mucus (Auto) Urine Ascorbic Acid Influenza A (Rapid) NEGATIVE Influenza B (Rapid) NEGATIVE 11/08/18 11/08/18 11/08/18 19:35 21:45 21:45 WBC RBC Hgb Hct MCV MCH MCHC RDW Plt Count Total Counted Seg Neutrophils % Seg Neuts % (Manual) Band Neutrophils % Lymphocytes % Lymphocytes % (Manual) Monocytes % Monocytes % (Manual) Eosinophils % Eosinophils % (Manual) Basophils % Basophils % (Manual) Absolute Neutrophils Abs Neuts (Manual) Absolute Lymphocytes Abs Lymphs (Manual) Absolute Monocytes Abs Monocytes (Manual) Absolute Eosinophils Absolute Eos (Manual) Absolute Basophils Abs Basophils (Manual) Toxic Granulation Toxic Vacuolation Platelet Comment Poikilocytosis Tear Drop Cells Ovalocytes PT INR APTT VBG pH 7.39 VBG pCO2 48.3 VBG HCO3 28.4 VBG Base Excess 2.5 Sodium Potassium Chloride Carbon Dioxide Anion Gap BUN Creatinine Est GFR ( Amer) Est GFR (Non-Af Amer) Glucose Lactic Acid 3.1 H Calcium Magnesium Total Bilirubin Direct Bilirubin Neonat Total Bilirubin Neonat Direct Bilirubin Neonat Indirect Bili AST ALT Alkaline Phosphatase Creatine Kinase 104 CK-MB (CK-2) Troponin I NT-Pro-B Natriuret Pep Total Protein Albumin Triglycerides Cholesterol LDL Cholesterol Direct VLDL Cholesterol HDL Cholesterol TSH Free T4 Free T3 pg/mL Urine Color Urine Appearance Urine pH Ur Specific [place] Urine Protein Urine Glucose (UA) Urine Ketones Urine Blood Urine Nitrite Urine Bilirubin Urine Urobilinogen Ur Leukocyte Esterase Urine WBC (Auto) Urine RBC (Auto) U Hyaline Cast (Auto) Urine Mucus (Auto) Urine Ascorbic Acid Influenza A (Rapid) Influenza B (Rapid) 11/08/18 11/08/18 11/09/18 21:45 22:25 01:58 WBC RBC Hgb Hct MCV MCH MCHC RDW Plt Count Total Counted Seg Neutrophils % Seg Neuts % (Manual) Band Neutrophils % Lymphocytes % Lymphocytes % (Manual) Monocytes % Monocytes % (Manual) Eosinophils % Eosinophils % (Manual) Basophils % Basophils % (Manual) Absolute Neutrophils Abs Neuts (Manual) Absolute Lymphocytes Abs Lymphs (Manual) Absolute Monocytes Abs Monocytes (Manual) Absolute Eosinophils Absolute Eos (Manual) Absolute Basophils Abs Basophils (Manual) Toxic Granulation Toxic Vacuolation Platelet Comment Poikilocytosis Tear Drop Cells Ovalocytes PT INR APTT VBG pH VBG pCO2 VBG HCO3 VBG Base Excess Sodium Potassium Chloride Carbon Dioxide Anion Gap BUN Creatinine Est GFR ( Amer) Est GFR (Non-Af Amer) Glucose Lactic Acid 3.2 H Calcium Magnesium Total Bilirubin Direct Bilirubin Neonat Total Bilirubin Neonat Direct Bilirubin Neonat Indirect Bili AST ALT Alkaline Phosphatase Creatine Kinase CK-MB (CK-2) 0.88 Troponin I < 0.012 NT-Pro-B Natriuret Pep Total Protein Albumin Triglycerides Cholesterol LDL Cholesterol Direct VLDL Cholesterol HDL Cholesterol TSH Free T4 Free T3 pg/mL Urine Color YELLOW Urine Appearance SLIGHTLY-CLOUDY Urine pH 6.0 Ur Specific [place] 1.013 Urine Protein NEGATIVE Urine Glucose (UA) NEGATIVE Urine Ketones NEGATIVE Urine Blood NEGATIVE Urine Nitrite NEGATIVE Urine Bilirubin NEGATIVE Urine Urobilinogen NEGATIVE Ur Leukocyte Esterase NEGATIVE Urine WBC (Auto) 1 Urine RBC (Auto) 0 U Hyaline Cast (Auto) 1 Urine Mucus (Auto) OCC Urine Ascorbic Acid NEGATIVE Influenza A (Rapid) Influenza B (Rapid) 11/09/18 11/09/18 11/09/18 05:08 05:08 05:08 WBC 22.1 H D RBC 4.79 Hgb 14.1 Hct 42.4 MCV 89 MCH 29.5 MCHC 33.3 RDW 13.9 Plt Count 159 Total Counted 100 Seg Neutrophils % Not Reportable Seg Neuts % (Manual) 93 H Band Neutrophils % 1 L Lymphocytes % Not Reportable Lymphocytes % (Manual) 3 L Monocytes % Not Reportable Monocytes % (Manual) 3 Eosinophils % Not Reportable Eosinophils % (Manual) 0 Basophils % Not Reportable Basophils % (Manual) 0 Absolute Neutrophils Not Reportable Abs Neuts (Manual) 20.8 H Absolute Lymphocytes Not Reportable Abs Lymphs (Manual) 0.7 Absolute Monocytes Not Reportable Abs Monocytes (Manual) 0.7 Absolute Eosinophils Not Reportable Absolute Eos (Manual) 0.0 Absolute Basophils Not Reportable Abs Basophils (Manual) 0.0 Toxic Granulation SLIGHT Toxic Vacuolation PRESENT Platelet Comment ADEQUATE Poikilocytosis SLIGHT Tear Drop Cells SLIGHT Ovalocytes SLIGHT PT INR APTT VBG pH VBG pCO2 VBG HCO3 VBG Base Excess Sodium 137.4 Potassium 4.3 Chloride 105 Carbon Dioxide 20 L Anion Gap 12 BUN 15 Creatinine 1.07 Est GFR ( Amer) > 60 Est GFR (Non-Af Amer) > 60 Glucose 134 H Lactic Acid Calcium 9.4 Magnesium 1.8 Total Bilirubin Direct Bilirubin Neonat Total Bilirubin Neonat Direct Bilirubin Neonat Indirect Bili AST ALT Alkaline Phosphatase Creatine Kinase 128 CK-MB (CK-2) 0.97 Troponin I < 0.012 NT-Pro-B Natriuret Pep Total Protein Albumin Triglycerides 90 Cholesterol 94.07 LDL Cholesterol Direct 54 VLDL Cholesterol 18.0 HDL Cholesterol 31 L TSH Free T4 Free T3 pg/mL Urine Color Urine Appearance Urine pH Ur Specific [place] Urine Protein Urine Glucose (UA) Urine Ketones Urine Blood Urine Nitrite Urine Bilirubin Urine Urobilinogen Ur Leukocyte Esterase Urine WBC (Auto) Urine RBC (Auto) U Hyaline Cast (Auto) Urine Mucus (Auto) Urine Ascorbic Acid Influenza A (Rapid) Influenza B (Rapid) 11/09/18 11/09/18 11/09/18 05:08 05:08 05:08 WBC RBC Hgb Hct MCV MCH MCHC RDW Plt Count Total Counted Seg Neutrophils % Seg Neuts % (Manual) Band Neutrophils % Lymphocytes % Lymphocytes % (Manual) Monocytes % Monocytes % (Manual) Eosinophils % Eosinophils % (Manual) Basophils % Basophils % (Manual) Absolute Neutrophils Abs Neuts (Manual) Absolute Lymphocytes Abs Lymphs (Manual) Absolute Monocytes Abs Monocytes (Manual) Absolute Eosinophils Absolute Eos (Manual) Absolute Basophils Abs Basophils (Manual) Toxic Granulation Toxic Vacuolation Platelet Comment Poikilocytosis Tear Drop Cells Ovalocytes PT INR APTT VBG pH 7.41 VBG pCO2 38.5 VBG HCO3 23.7 VBG Base Excess -0.7 Sodium Potassium Chloride Carbon Dioxide Anion Gap BUN Creatinine Est GFR ( Amer) Est GFR (Non-Af Amer) Glucose Lactic Acid 2.7 H Calcium Magnesium Total Bilirubin Direct Bilirubin Neonat Total Bilirubin Neonat Direct Bilirubin Neonat Indirect Bili AST ALT Alkaline Phosphatase Creatine Kinase CK-MB (CK-2) Troponin I NT-Pro-B Natriuret Pep Total Protein Albumin Triglycerides Cholesterol LDL Cholesterol Direct VLDL Cholesterol HDL Cholesterol TSH 0.81 Free T4 1.02 Free T3 pg/mL 2.80 Urine Color Urine Appearance Urine pH Ur Specific [place] Urine Protein Urine Glucose (UA) Urine Ketones Urine Blood Urine Nitrite Urine Bilirubin Urine Urobilinogen Ur Leukocyte Esterase Urine WBC (Auto) Urine RBC (Auto) U Hyaline Cast (Auto) Urine Mucus (Auto) Urine Ascorbic Acid Influenza A (Rapid) Influenza B (Rapid) 11/09/18 11/09/18 10:20 10:20 WBC RBC Hgb Hct MCV MCH MCHC RDW Plt Count Total Counted Seg Neutrophils % Seg Neuts % (Manual) Band Neutrophils % Lymphocytes % Lymphocytes % (Manual) Monocytes % Monocytes % (Manual) Eosinophils % Eosinophils % (Manual) Basophils % Basophils % (Manual) Absolute Neutrophils Abs Neuts (Manual) Absolute Lymphocytes Abs Lymphs (Manual) Absolute Monocytes Abs Monocytes (Manual) Absolute Eosinophils Absolute Eos (Manual) Absolute Basophils Abs Basophils (Manual) Toxic Granulation Toxic Vacuolation Platelet Comment Poikilocytosis Tear Drop Cells Ovalocytes PT INR APTT VBG pH VBG pCO2 VBG HCO3 VBG Base Excess Sodium Potassium Chloride Carbon Dioxide Anion Gap BUN Creatinine Est GFR ( Amer) Est GFR (Non-Af Amer) Glucose Lactic Acid Calcium Magnesium Total Bilirubin Direct Bilirubin Neonat Total Bilirubin Neonat Direct Bilirubin Neonat Indirect Bili AST ALT Alkaline Phosphatase Creatine Kinase 112 CK-MB (CK-2) 0.90 Troponin I < 0.012 NT-Pro-B Natriuret Pep Total Protein Albumin Triglycerides Cholesterol LDL Cholesterol Direct VLDL Cholesterol HDL Cholesterol TSH Free T4 Free T3 pg/mL Urine Color Urine Appearance Urine pH Ur Specific [place] Urine Protein Urine Glucose (UA) Urine Ketones Urine Blood Urine Nitrite Urine Bilirubin Urine Urobilinogen Ur Leukocyte Esterase Urine WBC (Auto) Urine RBC (Auto) U Hyaline Cast (Auto) Urine Mucus (Auto) Urine Ascorbic Acid Influenza A (Rapid) Influenza B (Rapid) Chest X-Ray 11/08/18 19:16 IMPRESSION: No evidence of acute cardiopulmonary disease. The patient initial EKG shows atrial fibrillation with rapid ventricular response. Incomplete right bundle branch block pattern. His subsequent EKG shows sinus rhythm. Incomplete right bundle branch block pattern. IMPRESSION/RECOMMENDATION: 1. Paroxysmal atrial fibrillation: The patient at present in sinus rhythm. We will stop the patient metoprolol and start the patient on sotalol. The risks and proarrhythmic properties of sotalol discussed with the patient and patient's family. Will watch the patient QTc and get with the serial EKGs, and watch the telemetry for any development of ventricular arrhythmias. 2. Sepsis:. Fever with positive blood cultures: Sepsis with with elevated lactic acid levels. Continue antibiotics and IV fluids. 3. Coronary artery disease: History of stent in the circumflex in 2007. No anginal symptoms. Later would recommend that the patient have a IV Lexiscan Cardiolite stress test. .4 Hypertension: Blood pressure well controlled continue losartan. 5. Diet-controlled diabetes mellitus.Diabetic diet and monitor blood sugars. 6. Hyperlipidemia: Continue statins. 7. Systolic murmur: Etiology: Later we will check an echocardiogram to assess murmur and patient's LV ejection fraction. MEDICATIONS reviewed: Medications changed and new medications added. Management plan discussed with attending physician on the case. Discussed with the patient patient's family also. Medical decision making is of high complexity. 60 minutes spent on this patient more than 50% of time spent in direct patient care. Will follow
[2018-11-09] MEDS: SOTALOL HCL 80 MG TABLET PO SCH (17:24)
[2018-11-09] MEDS: TAMSULOSIN HCL 0.4 MG CAP.SR.24H PO SCH (17:24)
[2018-11-09] MEDS: ATORVASTATIN CALCIUM 10 MG TABLET PO SCH (21:38)
[2018-11-09] MEDS ORDERED: (PENDING PHARMACY ID) (Pravastatin Sodium [Pravachol] 40 MG) PO SCH (22:00)
[2018-11-10] MEDS: RINGERS SOLUTION,LACTATED 1,000 ML IV PRN ×2 (01:24→08:16)
--- NOTE | 2018-11-10 01:26 | EKG REPORT ---
SEVERITY:- ABNORMAL ECG - SINUS RHYTHM INCOMPLETE RIGHT BUNDLE BRANCH BLOCK : Confirmed by: Marry Sal MD 10-Nov-2018 01:25:20
[2018-11-10] MEDS ORDERED: HYDRALAZINE HCL INJ/PF 20 MG/1 ML SDV IV PRN (04:34)
[2018-11-10] MEDS ORDERED: AMLODIPINE BESYLATE 10 MG TABLET PO ONE (05:00)
[2018-11-10] MEDS: MEROPENEM 1 GM in NORMAL SALINE 50 ML IV SCH (05:14)
[2018-11-10] MEDS: LANSOPRAZOLE 15 MG TAB.RAP.DR PO SCH (05:14)
[2018-11-10 06:03] LABS: ABSOLUTE EOSINOPHILS # (AUTO) 0.1 10^3/uL (0.0-0.6); ABSOLUTE LYMPHOCYTES (AUTO) 0.8 10^3/uL (0.5-4.7); ABSOLUTE MONOCYTES (AUTO) 0.5 10^3/uL (0.1-1.4); ABSOLUTE NEUT (AUTO) 8.9 10^3/uL (1.7-8.2); BASOPHILS % (AUTO) 0.5 % (0-2); EOSINOPHILS % (AUTO) 0.8 % (0-6); HEMATOCRIT 39.2 % (37.9-51.0); HEMOGLOBIN 13.4 g/dL (13.5-17.0); LYMPHOCYTES % (AUTO) 7.7 % (13-45); MEAN CORPUSCULAR HEMOGLOBIN 30.2 pg (27.0-33.4); MEAN CORPUSCULAR HGB CONC 34.2 g/dL (32.0-36.0); MEAN CORPUSCULAR VOLUME 88 fl (80-97); MONOCYTES % (AUTO) 5.1 % (3-13); PLATELET COUNT 115 10^3/uL (150-450); RED BLOOD COUNT 4.43 10^6/uL (4.35-5.55); RED CELL DISTRIBUTION WIDTH 13.8 % (11.5-14.0); SEGMENTED NEUTROPHILS % (AUTO) 85.9 % (42-78); TOTAL CELLS COUNTED % (AUTO) 100 %; WHITE BLOOD COUNT 10.3 10^3/uL (4.0-10.5)
[2018-11-10 06:29] LABS: ANION GAP 8 (5-19); BLOOD UREA NITROGEN 12 mg/dL (7-20); CALCIUM 9.1 mg/dL (8.4-10.2); CARBON DIOXIDE 24 mmol/L (22-30); CHLORIDE 103 mmol/L (98-107); GLUCOSE 115 mg/dL (75-110); POTASSIUM 3.8 mmol/L (3.6-5.0); SODIUM 135.4 mmol/L (137-145)
--- NOTE | 2018-11-10 07:03 | EKG REPORT ---
SEVERITY:- ABNORMAL ECG - SINUS RHYTHM INCOMPLETE RIGHT BUNDLE BRANCH BLOCK : Confirmed by: Varinder Adams MD 10-Nov-2018 07:02:52
[2018-11-10] MEDS: FONDAPARINUX SODIUM INJ 2.5 MG/0.5 ML DISP.SYRIN SUBCUT SCH (08:15)
[2018-11-10] MEDS ORDERED: METOPROLOL SUCCINATE 25 MG TAB.SR.24H PO SCH (10:00)
[2018-11-10] MEDS: VANCOMYCIN HCL 1,000 MG in DEXTROSE 5%-WATER 250 ML IV SCH ×2 (10:13→22:53)
[2018-11-10] MEDS: DUTASTERIDE 0.5 MG CAPSULE PO SCH (10:13)
[2018-11-10] MEDS: LOSARTAN POTASSIUM 50 MG TABLET PO SCH (10:13)
[2018-11-10] MEDS: CETIRIZINE 10 MG TABLET PO SCH (10:14)
[2018-11-10] MEDS: FERROUS SULFATE 325 MG TABLET PO SCH (10:14)
[2018-11-10] MEDS: ASPIRIN 325 MG TABLET PO SCH (10:14)
[2018-11-10] MEDS: TAMSULOSIN HCL 0.4 MG CAP.SR.24H PO SCH ×2 (10:14→18:17)
[2018-11-10] MEDS: SOTALOL HCL 80 MG TABLET PO SCH ×2 (10:14→22:08)
[2018-11-10] MEDS: VALACYCLOVIR HCL 500 MG TABLET PO SCH ×2 (10:14→18:17)
[2018-11-10] MEDS: DOCUSATE SODIUM 100 MG CAPSULE PO SCH ×2 (10:14→18:17)
--- NOTE | 2018-11-10 15:35 | PDOC PROGRESS REPORT ---
Subjective Progress Note for:: 11/10/18 Subjective:: This is a 78 years old male patient with past medical history of hypertension, and coronary artery disease status post stent placement presented with fever and shaking chills. His blood work shows leukocytosis of 22,000 his EKG shows new onset A. fib with RVR and his blood culture grew gram-negative throat, gram positive cocci in chains and gram-positive cocci. Patient has been empirically started on vancomycin and meropenem. I switch his meropenem to cefepime. This morning I seen patient sitting on chair chatting with his . And the report is he feeling much better. Reason For Visit: ATRIAL FIBRILLATION WITH RAPID VENTRICULAR RESPONS Physical Exam Vital Signs: Temp Pulse Resp BP Pulse Ox 98.6 F 83 16 134/61 H 96 11/10/18 11:16 11/10/18 11:16 11/10/18 11:16 11/10/18 11:16 11/10/18 11:16 Intake & Output 11/09/18 11/10/18 11/11/18 06:59 06:59 06:59 Intake Total 4462 2473 Output Total 2550 1285 Balance 1912 1188 Weight 91.63 kg General appearance: PRESENT: no acute distress Head exam: PRESENT: atraumatic Eye exam: PRESENT: conjunctiva pink Neck exam: ABSENT: carotid bruit, JVD, lymphadenopathy, thyromegaly Respiratory exam: PRESENT: clear to auscultation isela. ABSENT: rales, rhonchi, wheezes Cardiovascular exam: PRESENT: RRR. ABSENT: diastolic murmur, rubs, systolic murmur GI/Abdominal exam: PRESENT: normal bowel sounds, soft. ABSENT: distended, guarding, mass, organolmegaly, rebound, tenderness Extremities exam: PRESENT: full ROM. ABSENT: calf tenderness, clubbing, pedal edema Neurological exam: PRESENT: alert, awake, oriented to time, oriented to situation Results Laboratory Results: 11/10/18 05:14 11/10/18 05:14 11/10/18 11/10/18 05:14 05:14 WBC 10.3 RBC 4.43 Hgb 13.4 L Hct 39.2 MCV 88 MCH 30.2 MCHC 34.2 RDW 13.8 Plt Count 115 L Seg Neutrophils % 85.9 H Lymphocytes % 7.7 L Monocytes % 5.1 Eosinophils % 0.8 Basophils % 0.5 Absolute Neutrophils 8.9 H Absolute Lymphocytes 0.8 Absolute Monocytes 0.5 Absolute Eosinophils 0.1 Absolute Basophils 0.0 Sodium 135.4 L Potassium 3.8 Chloride 103 Carbon Dioxide 24 Anion Gap 8 BUN 12 Creatinine 0.90 Est GFR ( Amer) > 60 Est GFR (Non-Af Amer) > 60 Glucose 115 H Calcium 9.1 Magnesium 1.7 11/08/18 11/08/18 11/08/18 18:22 21:45 21:45 Creatine Kinase 104 CK-MB (CK-2) 0.88 Troponin I < 0.012 < 0.012 NT-Pro-B Natriuret Pep 192 11/09/18 11/09/18 11/09/18 05:08 05:08 10:20 Creatine Kinase 128 112 CK-MB (CK-2) 0.97 Troponin I < 0.012 NT-Pro-B Natriuret Pep 11/09/18 10:20 Creatine Kinase CK-MB (CK-2) 0.90 Troponin I < 0.012 NT-Pro-B Natriuret Pep Impressions: Chest X-Ray 11/08/18 19:16 IMPRESSION: No evidence of acute cardiopulmonary disease. Assessment & Plan - Diagnosis (1) Sepsis Is this a current diagnosis for this admission?: Yes Plan: Evidenced by fever, leukocytosis, lactic acidosis tachycardia, blood culture positive for gram-negative pawel and gram-positive positive cocci and new onset A. fib. Patient has been getting vancomycin and cefepime. Based on his clinical response and final culture result will de-escalate his antibiotics. (2) Bacteremia Is this a current diagnosis for this admission?: Yes Plan: Due to gram-negative rods and gram-positive cocci. Continue antibiotics. (3) New onset A. fib with RVR Is this a current diagnosis for this admission?: Yes Plan: Rate controlled (4) Coronary artery disease Is this a current diagnosis for this admission?: Yes Plan: No anginal symptoms (5) Hypertension Is this a current diagnosis for this admission?: Yes Plan: Continue current regimen
[2018-11-10] MEDS ORDERED: METRONIDAZOLE 500 MG TABLET PO SCH (15:45)
[2018-11-10] MEDS ORDERED: VANCOMYCIN HCL INJ 500 MG VIAL PO SCH (15:45)
--- NOTE | 2018-11-10 22:01 | Progress Note ---
Provider Note Provider Note: CARDIOLOGY PROGRESS NOTE by Dr. Marry Sal on 11/10/2018. SUBJECTIVE: The patient remains in sinus rhythm. There is no prior arrhythmias with sotalol. The patient denies any PND orthopnea. He seems to have cough but is not able to bring out any sputum. He has no chest pain or discomfort. There is no pedal edema. There is no ventricular arrhythmia seen on the monitor. The patient has no fever. The patient's source of sepsis is not clear. PHYSICAL EXAMINATION: The patient is mildly obese. He is in no acute distress. He is well-groomed. Selected Entries 11/10/18 11:16 Temperature 98.6 F Temperature Oral Source Pulse Rate 83 Respiratory 16 Rate Blood Pressure 134/61 H Blood Pressure 85 Mean BP Location Left Arm BP Position Sitting O2 Sat by Pulse 96 Oximetry Oxygen Delivery Room Air Method HEAD: Is atraumatic normocephalic. EYES: Pupils equal round regular react to light accommodation. There is no conjunctival pallor. There is no scleral icterus present. EARS: Tympanic memories are intact. External auditory canals are clear. NOSE: There is no deviated nasal septum. There is no inflammation of the nasal mucous membrane. MOUTH: Mucous membranes of mouth are moist. Tongue is moist. There is no ulcers in the mouth. There is no bleeding from the gums. THROAT: There is no redness of the oropharynx. There is no exudates. SKIN: There is no particular ecchymosis. There is no skin rash or skin lesions. NECK: Is supple. There is no JVD. Carotids are equal there is no bruits. There is no lymphadenopathy. There is no goiter. There is no accessory muscle respiration use. Trachea central. LUNGS: Is clear to auscultation percussion without any rhonchi rales or wheezing. On palpation there is no chest wall tenderness. HEART: S1-S2 is heard S1 is of normal intensity. There is no S3 gallop. There is no S4 gallop. There is systolic murmur left sternal border and the apex without radiation. There is no rub. ABDOMEN: Is mildly obese. There is no hepatosplenomegaly. Bowel sounds are well heard. There is no tender areas masses. There is no rebound guarding or rigidity. MANAGER EDUCATION: The patient is conscious awake alert oriented x3 with no focal deficits. PSYCHIATRIC: The patient judgment and insight are intact his affect is normal. 11/08/18 11/09/18 11/09/18 18:54 05:08 10:20 WBC RBC Hgb Hct MCV MCH MCHC RDW Plt Count Seg Neutrophils % Sodium Potassium Chloride Carbon Dioxide Anion Gap BUN Creatinine Est GFR (Non-Af Amer) Glucose Calcium Magnesium Creatine Kinase 112 CK-MB (CK-2) 0.97 Troponin I < 0.012 Influenza A (Rapid) NEGATIVE Influenza B (Rapid) NEGATIVE 11/09/18 11/10/18 11/10/18 10:20 05:14 05:14 WBC 10.3 RBC 4.43 Hgb 13.4 L Hct 39.2 MCV 88 MCH 30.2 MCHC 34.2 RDW 13.8 Plt Count 115 L Seg Neutrophils % 85.9 H Sodium 135.4 L Potassium 3.8 Chloride 103 Carbon Dioxide 24 Anion Gap 8 BUN 12 Creatinine 0.90 Est GFR (Non-Af Amer) > 60 Glucose 115 H Calcium 9.1 Magnesium 1.7 Creatine Kinase CK-MB (CK-2) 0.90 Troponin I < 0.012 Influenza A (Rapid) Influenza B (Rapid) 11/10/18 15:00 Blood Culture - Pending Blood 11/10/18 14:20 Blood Culture - Pending Blood 11/09/18 01:00 Urine Culture - Preliminary Clean Catch Midstream NO GROWTH IN 1 DAY 11/08/18 19:35 Blood Culture - Preliminary Blood Gram Negative Rods 11/08/18 18:22 Blood Culture - Preliminary Blood Gram Positive Cocci In Chains Gram Negative Rods Gram Positive Cocci EKG: [SR] . SINUS RHYTHM [IRBBB] . INCOMPLETE RIGHT BUNDLE BRANCH BLOCK [id number] IRENE SCHWARTZ SR 10-Nov-2018 05:58:37 : 1940 78 Years Male Race: White Dept: Inpatients Room: 328 Oper: CM HR 91 ND 168 QRSD 112 QT 340 QTc 419 IMPRESSION/RECOMMENDATION: 1. Paroxysmal atrial fibrillation: The patient at present in sinus rhythm. We will stop the patient metoprolol and start the patient on sotalol. The risks and proarrhythmic properties of sotalol discussed with the patient and patient's family. There is no pleural arrhythmias with sotalol. And the QTC is within normal limits. We will continue that. 2. Sepsis:. Fever with positive blood cultures: Sepsis with with elevated lactic acid levels. Continue antibiotics and IV fluids. 3. Coronary artery disease: History of stent in the circumflex in 2007. No anginal symptoms. Later would recommend that the patient have a IV Lexiscan Cardiolite stress test. .4 Hypertension: Blood pressure well controlled continue losartan. 5. Diet-controlled diabetes mellitus.Diabetic diet and monitor blood sugars. 6. Hyperlipidemia: Continue statins. 7. Systolic murmur: Etiology: Later we will check an echocardiogram to assess murmur and patient's LV ejection fraction. MEDICATIONS reviewed: Medications changed and new medications added. Management plan discussed with attending physician on the case. Discussed with the patient patient's family also. Medical decision making is of high complexity. 60 minutes spent on this patient more than 50% of time spent in direct patient care. Will follow
[2018-11-10] MEDS: ATORVASTATIN CALCIUM 10 MG TABLET PO SCH (22:08)
[2018-11-10] MEDS: CEFEPIME 2 GM/D5W RTU 2 GM/50 ML RTUPB IV SCH (22:08)
[2018-11-11] MEDS: LANSOPRAZOLE 15 MG TAB.RAP.DR PO SCH (06:06)
[2018-11-11 06:55] LABS: ABSOLUTE EOSINOPHILS # (AUTO) 0.1 10^3/uL (0.0-0.6); ABSOLUTE LYMPHOCYTES (AUTO) 0.9 10^3/uL (0.5-4.7); ABSOLUTE MONOCYTES (AUTO) 0.7 10^3/uL (0.1-1.4); ABSOLUTE NEUT (AUTO) 6.8 10^3/uL (1.7-8.2); BASOPHILS % (AUTO) 0.4 % (0-2); EOSINOPHILS % (AUTO) 1.4 % (0-6); HEMATOCRIT 37.5 % (37.9-51.0); HEMOGLOBIN 12.9 g/dL (13.5-17.0); LYMPHOCYTES % (AUTO) 10.8 % (13-45); MEAN CORPUSCULAR HEMOGLOBIN 30.2 pg (27.0-33.4); MEAN CORPUSCULAR HGB CONC 34.4 g/dL (32.0-36.0); MEAN CORPUSCULAR VOLUME 88 fl (80-97); MONOCYTES % (AUTO) 7.8 % (3-13); PLATELET COUNT 112 10^3/uL (150-450); RED BLOOD COUNT 4.27 10^6/uL (4.35-5.55); RED CELL DISTRIBUTION WIDTH 13.9 % (11.5-14.0); SEGMENTED NEUTROPHILS % (AUTO) 79.6 % (42-78); TOTAL CELLS COUNTED % (AUTO) 100 %; WHITE BLOOD COUNT 8.6 10^3/uL (4.0-10.5)
[2018-11-11 07:16] LABS: ANION GAP 11 (5-19); BLOOD UREA NITROGEN 12 mg/dL (7-20); CALCIUM 8.9 mg/dL (8.4-10.2); CARBON DIOXIDE 24 mmol/L (22-30); CHLORIDE 100 mmol/L (98-107); GLUCOSE 111 mg/dL (75-110); POTASSIUM 3.9 mmol/L (3.6-5.0); SODIUM 134.7 mmol/L (137-145)
--- NOTE | 2018-11-11 07:16 | EKG REPORT ---
SEVERITY:- ABNORMAL ECG - SINUS RHYTHM INCOMPLETE RIGHT BUNDLE BRANCH BLOCK : Confirmed by: Varinder Adams MD 11-Nov-2018 07:15:28
[2018-11-11] MEDS: FONDAPARINUX SODIUM INJ 2.5 MG/0.5 ML DISP.SYRIN SUBCUT SCH (08:44)
[2018-11-11] MEDS ORDERED: METOPROLOL TARTRATE PF/INJ 5 MG/5 ML SDV IV ONE ×2 (09:43→14:00)
[2018-11-11] MEDS: DOCUSATE SODIUM 100 MG CAPSULE PO SCH ×2 (10:07→17:42)
[2018-11-11] MEDS: FERROUS SULFATE 325 MG TABLET PO SCH (10:07)
[2018-11-11] MEDS: LOSARTAN POTASSIUM 50 MG TABLET PO SCH (10:08)
[2018-11-11] MEDS: CETIRIZINE 10 MG TABLET PO SCH (10:08)
[2018-11-11] MEDS: TAMSULOSIN HCL 0.4 MG CAP.SR.24H PO SCH ×2 (10:09→17:42)
[2018-11-11] MEDS: VALACYCLOVIR HCL 500 MG TABLET PO SCH ×2 (10:11→17:42)
[2018-11-11] MEDS: ASPIRIN 325 MG TABLET PO SCH (10:11)
[2018-11-11] MEDS: DUTASTERIDE 0.5 MG CAPSULE PO SCH (10:11)
[2018-11-11] MEDS: SOTALOL HCL 80 MG TABLET PO SCH ×3 (10:12→22:02)
[2018-11-11] MEDS: VANCOMYCIN HCL 1,000 MG in DEXTROSE 5%-WATER 250 ML IV SCH (10:28)
[2018-11-11] MEDS: CEFEPIME 2 GM/D5W RTU 2 GM/50 ML RTUPB IV SCH (10:29)
[2018-11-11] MEDS ORDERED: DILTIAZEM HCL 180 MG CAPSULE.CR PO ONE (10:30)
[2018-11-11 10:33] LABS: VANCOMYCIN,TROUGH 9.7 ug/mL (5.0-20.0)
--- NOTE | 2018-11-11 11:25 | RADIOLOGY REPORT (SQ) ---
EXAM DESCRIPTION: CHEST SINGLE VIEW COMPLETED DATE/TIME: 11/11/2018 11:08 am REASON FOR STUDY: Cough COMPARISON: 11/08/2018. FINDINGS: Single-view chest AP portable upright timed approximately 1044 hours in PACs. Stable cardiomediastinal silhouette. Grossly normal heart size. No evidence of congestive failure. Clear lungs without infiltrate or edema. TECHNICAL DOCUMENTATION: JOB ID: [id number] Reading location - IP/workstation name: [email or web address]
--- NOTE | 2018-11-11 12:13 | EKG REPORT ---
SEVERITY:- ABNORMAL ECG - ATRIAL FIBRILLATION EARLY PRECORDIAL TRANSITION , SUSPECT OLD TRUE POST IA. : Confirmed by: Varinder Adams MD 11-Nov-2018 12:13:06
--- NOTE | 2018-11-11 14:20 | PDOC PROGRESS REPORT ---
Subjective Progress Note for:: 11/11/18 Subjective:: I seen patient resting in bed comfortably. Morning patient has an episode of A. fib with RVR. He is given Lopressor 5 mg IV ordered by Dr. Sal. His right eye is weeping and the conjunctiva also injected. 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 No other new complaints. Reason For Visit: ATRIAL FIBRILLATION WITH RAPID VENTRICULAR RESPONS Physical Exam Vital Signs: Temp Pulse Resp BP Pulse Ox 98.0 F 126 H 18 134/70 H 97 11/11/18 11:04 11/11/18 11:04 11/11/18 11:04 11/11/18 11:04 11/11/18 11:04 Intake & Output 11/10/18 11/11/18 11/12/18 06:59 06:59 06:59 Intake Total 4462 3406 791 Output Total 2550 2985 625 Balance 1912 421 166 Weight 91.63 kg 90.7 kg General appearance: PRESENT: no acute distress Eye exam: PRESENT: conjunctival injection Mouth exam: PRESENT: moist Neck exam: ABSENT: carotid bruit, JVD, lymphadenopathy, thyromegaly Respiratory exam: PRESENT: clear to auscultation isela. ABSENT: rales, rhonchi, wheezes Cardiovascular exam: PRESENT: irregular rhythm Neurological exam: PRESENT: alert, awake, oriented to time, oriented to situation Results Laboratory Results: 11/11/18 05:54 11/11/18 05:54 11/11/18 11/11/18 05:54 05:54 WBC 8.6 RBC 4.27 L Hgb 12.9 L Hct 37.5 L MCV 88 MCH 30.2 MCHC 34.4 RDW 13.9 Plt Count 112 L Seg Neutrophils % 79.6 H Lymphocytes % 10.8 L Monocytes % 7.8 Eosinophils % 1.4 Basophils % 0.4 Absolute Neutrophils 6.8 Absolute Lymphocytes 0.9 Absolute Monocytes 0.7 Absolute Eosinophils 0.1 Absolute Basophils 0.0 Sodium 134.7 L Potassium 3.9 Chloride 100 Carbon Dioxide 24 Anion Gap 11 BUN 12 Creatinine 0.85 Est GFR ( Amer) > 60 Est GFR (Non-Af Amer) > 60 Glucose 111 H Calcium 8.9 Magnesium 1.8 11/09/18 01:00 Clean Catch Midstream Urine Culture - Final NO GROWTH 2 DAYS 11/08/18 19:35 Blood Blood Culture - Final Escherichia Coli 11/08/18 11/08/18 11/08/18 18:22 21:45 21:45 Creatine Kinase 104 CK-MB (CK-2) 0.88 Troponin I < 0.012 < 0.012 NT-Pro-B Natriuret Pep 192 11/09/18 11/09/18 11/09/18 05:08 05:08 10:20 Creatine Kinase 128 112 CK-MB (CK-2) 0.97 Troponin I < 0.012 NT-Pro-B Natriuret Pep 11/09/18 10:20 Creatine Kinase CK-MB (CK-2) 0.90 Troponin I < 0.012 NT-Pro-B Natriuret Pep Assessment & Plan - Diagnosis (1) Sepsis Is this a current diagnosis for this admission?: Yes Plan: Evidenced by fever, leukocytosis, lactic acidosis tachycardia, blood culture positive for gram-negative pawel and gram-positive positive cocci and new onset A. fib. Patient has been getting vancomycin and cefepime. Based on his clinical response and final culture result will de-escalate his antibiotics. (2) Bacteremia Is this a current diagnosis for this admission?: Yes Plan: Due to gram-negative rods and gram-positive cocci. Continue antibiotics. (3) New onset A. fib with RVR Is this a current diagnosis for this admission?: Yes Plan: Rate controlled (4) Coronary artery disease Is this a current diagnosis for this admission?: Yes Plan: No anginal symptoms (5) Hypertension Is this a current diagnosis for this admission?: Yes Plan: Continue current regimen
--- NOTE | 2018-11-11 17:16 | RADIOLOGY REPORT (SQ) ---
EXAM DESCRIPTION: CTA CHEST COMPLETED DATE/TIME: 11/11/2018 5:05 pm REASON FOR STUDY: Cough / Afibrillation COMPARISON: Radiographs. TECHNIQUE: CT scan of the chest performed using helical scanning technique with dynamic intravenous contrast injection. Images reviewed with lung, soft tissue and bone windows. Reconstructed coronal and sagittal MPR images reviewed. Additional 3 dimensional post-processing performed to develop Maximal Intensity Projection images (NM P). All images stored on PACS. All CT scanners at this facility use dose modulation, iterative reconstruction, and/or weight based d osing when appropriate to reduce radiation dose to as low as reasonably achievable (ALARA). [facility]: Dose Right [facility]: CareDose [facility]: Dose Right [facility]: Teradose 4D [facility]: [employer] CONTRAST TYPE AND DOSE: contrast/concentration: Isovue 350.00 mg/ml; Total Contrast Delivered: 79.0 ml; Total Saline Delivered: 110.0 ml Contrast bolus optimized for the pulmonary arteries. Limited diagnostic for the aorta. RENAL FUNCTION: Appropriate. RADIATION DOSE: CT Rad equipment meets quality standard of care and radiation dose reduction techniq ues were employed. CTDIvol: 28.9 - 52.9 mGy. DLP: 1179 mGy-cm. . LIMITATIONS: None. FINDINGS: LUNGS AND PLEURA: Small right effusion. Trace left pleural fluid. AORTA AND GREAT VESSELS: No aneurysm. Contrast bolus not optimized for the aorta. HEART: No pericardial effusion. No significant coronary artery calcifications. PULMONARY ARTERIES: No emboli visualized in the main pulmonary arteries or the segmental branches. HILAR AND MEDIASTINAL STRUCTURES: Calcified nodes consistent with previous granulomatous infection. HARDWARE: None in the chest. UPPER ABDOMEN: Cholelithiasis without acute cholecystitis. THYROID AND OTHER SOFT TISSUES: No masses. No adenopathy. BONES: No acute or significant finding. 3D MIPS: Confirm above findings. OTHER: No other significant finding. IMPRESSION: 1. Small effusions may reflect cardiac dysfunction and mild relatively compensated cardiac failure. No significant lung opacity otherwise. 2. No pulmonary embolus. 3. Evidence of previous granulomatous disease. COMMENT: Quality ID # [id number]: Final reports with documentation of one or more dose reduction techniques (e.g., Automated exposure control, adjustment of the mA and/or kV according to patient size, use of iterative reconstruction technique) TECHNICAL DOCUMENTATION: JOB ID: [id number]- All Rights Reserved Reading location - IP/workstation name: [email or web address]
--- NOTE | 2018-11-11 18:43 | Progress Note ---
Provider Note Provider Note: CARDIOLOGY PROGRESS NOTE by Dr. Marry Sal on 11/11/2018. SUBJECTIVE: The patient continues to have some cough which is nonproductive. He denies any wheezing. There is no shortness of breath. There is no PND orthopnea or leg edema. The patient has no chest pain. Note that the patient reverted back into atrial fibrillation with a fast ventricular response. His sotalol was increased to 80 mg p.o. every 12 hours. He did receive 5 mg of IV Lopressor. After the second dose of 2.5 mg of IV Lopressor the patient had pauses. At present the patient at a slower rhythm and seems to be in atrial fibrillation with controlled ventricular response. The patient is otherwise asymptomatic. His pulmonary CT angiogram is negative for any pulmonary emboli. Although the patient's platelets are low there is no petechiae or ecchymosis or bleeding. No TIA CVA symptoms. PHYSICAL EXAM: The patient is mildly obese. In no acute distress. He is well- groomed. Selected Entries 11/11/18 15:06 Temperature 98.5 F Temperature Oral Source Pulse Rate 88 Respiratory 16 Rate Blood Pressure 122/70 Blood Pressure 87 Mean BP Location Right Arm BP Position Supine O2 Sat by Pulse 98 Oximetry Oxygen Delivery Room Air Method HEAD: Is atraumatic normocephalic. EYES: Pupils equal round regular react to light accommodation. There is no conjunctival pallor. There is no scleral icterus present. EARS: Tympanic memories are intact. External auditory canals are clear. NOSE: There is no deviated nasal septum. There is no inflammation of the nasal mucous membrane. MOUTH: Mucous membranes of mouth are moist. Tongue is moist. There is no ulcers in the mouth. There is no bleeding from the gums. THROAT: There is no redness of the oropharynx. There is no exudates. SKIN: There is no particular ecchymosis. There is no skin rash or skin lesions. NECK: Is supple. There is no JVD. Carotids are equal there is no bruits. There is no lymphadenopathy. There is no goiter. There is no accessory muscle respiration use. Trachea central. LUNGS: Is clear to auscultation percussion without any rhonchi rales or wheezing. On palpation there is no chest wall tenderness. HEART: S1-S2 is heard S1 is of variable intensity. There is no S3 gallop. There is no S4 gallop. There is systolic murmur left sternal border and the apex without radiation. There is no rub. ABDOMEN: Is mildly obese. There is no hepatosplenomegaly. Bowel sounds are well heard. There is no tender areas masses. There is no rebound guarding or rigidity. MARKET MAKER: The patient is conscious awake alert oriented x3 with no focal deficits. PSYCHIATRIC: The patient judgment and insight are intact his affect is normal. 11/09/18 11/11/18 11/11/18 10:20 05:54 05:54 WBC 8.6 RBC 4.27 L Hgb 12.9 L Hct 37.5 L MCV 88 MCH 30.2 MCHC 34.4 RDW 13.9 Plt Count 112 L Seg Neutrophils % 79.6 H Lymphocytes % 10.8 L Sodium 134.7 L Potassium 3.9 Chloride 100 Carbon Dioxide 24 Anion Gap 11 BUN 12 Creatinine 0.85 Est GFR (Non-Af Amer) > 60 Glucose 111 H Calcium 8.9 Magnesium 1.8 CK-MB (CK-2) 0.90 Troponin I < 0.012 IMPRESSION/RECOMMENDATION: 1. Recurrent atrial fibrillation: We will increase the patient's sotalol to 80 mg p.o. every 12 hours. Hopefully this will convert the patient back into sinus rhythm. 2. Sepsis:. Fever with positive blood cultures: Sepsis with with elevated lactic acid levels. Continue antibiotics and IV fluids. The exact etiology of the sepsis is still obscure this is slowly resolving. The patient is afebrile with stable hemodynamics. 3. Coronary artery disease: History of stent in the circumflex in 2007. No anginal symptoms. Later would recommend that the patient have a IV Lexiscan Cardiolite stress test. .4 Hypertension: Blood pressure well controlled continue losartan. 5. Diet-controlled diabetes mellitus.Diabetic diet and monitor blood sugars. 6. Hyperlipidemia: Continue statins. 7. Systolic murmur: Etiology: Later we will check an echocardiogram to assess murmur and patient's LV ejection fraction. MEDICATIONS reviewed: Medications changed and new medications added. Management plan discussed with attending physician on the case. Discussed with the patient patient's family also. Medical decision making is of high complexity. 60 minutes spent on this patient more than 50% of time spent in direct patient care. Will follow
[2018-11-11] MEDS: ATORVASTATIN CALCIUM 10 MG TABLET PO SCH (22:01)
[2018-11-11] MEDS: VANCOMYCIN HCL 1,250 MG in DEXTROSE 5%-WATER 250 ML IV SCH (22:03)
[2018-11-12] MEDS: LANSOPRAZOLE 15 MG TAB.RAP.DR PO SCH (05:33)
--- NOTE | 2018-11-12 07:44 | EKG REPORT ---
SEVERITY:- BORDERLINE ECG - SINUS RHYTHM : Confirmed by: Varinder Adams MD 12-Nov-2018 07:43:43
[2018-11-12] MEDS: FONDAPARINUX SODIUM INJ 2.5 MG/0.5 ML DISP.SYRIN SUBCUT SCH (09:02)
[2018-11-12] MEDS ORDERED: DILTIAZEM HCL 180 MG CAPSULE.CR PO SCH (10:00)
[2018-11-12] MEDS: FERROUS SULFATE 325 MG TABLET PO SCH (10:26)
[2018-11-12] MEDS: CEFTRIAXONE 2 GM/D5W RTU 2 GM/50 ML RTUPB IV SCH (10:26)
[2018-11-12] MEDS: DOCUSATE SODIUM 100 MG CAPSULE PO SCH ×2 (10:27→18:13)
[2018-11-12] MEDS: TAMSULOSIN HCL 0.4 MG CAP.SR.24H PO SCH ×2 (10:27→18:13)
[2018-11-12] MEDS: CETIRIZINE 10 MG TABLET PO SCH (10:27)
[2018-11-12] MEDS: LOSARTAN POTASSIUM 50 MG TABLET PO SCH (10:28)
[2018-11-12] MEDS: SOTALOL HCL 80 MG TABLET PO SCH ×2 (10:30→22:17)
[2018-11-12] MEDS: ASPIRIN 325 MG TABLET PO SCH (10:30)
[2018-11-12] MEDS: VANCOMYCIN HCL 1,250 MG in DEXTROSE 5%-WATER 250 ML IV SCH ×2 (10:31→22:11)
[2018-11-12] MEDS: DUTASTERIDE 0.5 MG CAPSULE PO SCH (10:31)
[2018-11-12] MEDS: VALACYCLOVIR HCL 500 MG TABLET PO SCH ×2 (10:31→18:14)
--- NOTE | 2018-11-12 12:17 | Progress Note ---
Provider Note Provider Note: Cardiology progress note by Dr. Marry Sal, on 11/12/2018. SUBJECTIVE: The patient denies any fever chills or rigors. There is no chest pain or discomfort. He remains in sinus rhythm. The patient's QTC is within acceptable limits. There is no chest pain or discomfort there is no shortness of breath. There is no PND orthopnea or leg edema. There is no ventricular arrhythmia seen on the monitor and no pleural arrhythmias with sotalol. He denies any cough or sputum production. There is no TIA CVA symptoms. PHYSICAL EXAMINATION: The patient is mildly obese. He is in no acute distress. He is well-groomed. 11/12/18 07:23 Temperature 98.1 F Temperature Oral Source Pulse Rate 65 Respiratory 14 Rate Blood Pressure 146/74 H Blood Pressure 98 Mean BP Location Right Arm BP Position Supine O2 Sat by Pulse 96 Oximetry Oxygen Delivery Room Air Method HEAD: Is atraumatic normocephalic. EYES: Pupils equal round regular react to light accommodation. There is no conjunctival pallor. There is no scleral icterus present. EARS: Tympanic memories are intact. External auditory canals are clear. NOSE: There is no deviated nasal septum. There is no inflammation of the nasal mucous membrane. MOUTH: Mucous membranes of mouth are moist. Tongue is moist. There is no ulcers in the mouth. There is no bleeding from the gums. THROAT: There is no redness of the oropharynx. There is no exudates. SKIN: There is no particular ecchymosis. There is no skin rash or skin lesions. NECK: Is supple. There is no JVD. Carotids are equal there is no bruits. There is no lymphadenopathy. There is no goiter. There is no accessory muscle respiration use. Trachea central. LUNGS: Is clear to auscultation percussion without any rhonchi rales or wheezing. On palpation there is no chest wall tenderness. HEART: S1-S2 is heard S1 is of variable intensity. There is no S3 gallop. There is no S4 gallop. There is systolic murmur left sternal border and the apex without radiation. There is no rub. ABDOMEN: Is mildly obese. There is no hepatosplenomegaly. Bowel sounds are well heard. There is no tender areas masses. There is no rebound guarding or rigidity. MANAGER UTILIZATION: The patient is conscious awake alert oriented x3 with no focal deficits. PSYCHIATRIC: The patient judgment and insight are intact his affect is normal. EKG: Sinus Rhythm. Within normal limits HR 62 MT 160 QRSD 98 QT 400 QTc 407 -- AXIS -- P 65 QRS 65 T 60 IMPRESSION/RECOMMENDATION: 1. Recurrent atrial fibrillation: We will increase the patient's sotalol to 80 mg p.o. every 12 hours. Hopefully this will convert the patient back into sinus rhythm. 2. Sepsis:. Fever with positive blood cultures: Sepsis with with elevated lactic acid levels. Continue antibiotics and IV fluids. The exact etiology of the sepsis is still obscure this is slowly resolving. The patient is afebrile with stable hemodynamics. 3. Coronary artery disease: History of stent in the circumflex in 2007. No anginal symptoms. Later would recommend that the patient have a IV Lexiscan Cardiolite stress test. .4 Hypertension: Blood pressure well controlled continue losartan. 5. Diet-controlled diabetes mellitus.Diabetic diet and monitor blood sugars. 6. Hyperlipidemia: Continue statins. 7. Systolic murmur: Etiology: Later we will check an echocardiogram to assess murmur and patient's LV ejection fraction. MEDICATIONS reviewed: Medications changed and new medications added. Management plan discussed with attending physician on the case. Discussed with the patient patient's family also. Medical decision making is of high complexity. 60 minutes spent on this patient more than 50% of time spent in direct patient care. Will follow
[2018-11-12] MEDS: ATORVASTATIN CALCIUM 10 MG TABLET PO SCH (22:11)
[2018-11-13] MEDS: LANSOPRAZOLE 15 MG TAB.RAP.DR PO SCH (06:04)
--- NOTE | 2018-11-13 10:36 | PDOC PROGRESS REPORT ---
Subjective Progress Note for:: 11/13/18 Subjective:: I seen patient resting in bed comfortably. No significant change overnight. His heart rate is controlled. The final report of the blood cultures positive for Streptococcus and E. coli both are sensitive for ceftriaxone so I discontinued the vancomycin. The repeat blood culture is negative. Reason For Visit: ATRIAL FIBRILLATION WITH RAPID VENTRICULAR RESPONS Physical Exam Vital Signs: Temp Pulse Resp BP Pulse Ox 98.1 F 57 L 15 156/75 H 96 11/13/18 08:09 11/13/18 08:09 11/13/18 08:09 11/13/18 08:09 11/13/18 08:09 Intake & Output 11/12/18 11/13/18 11/14/18 06:59 06:59 06:59 Intake Total 1641 1104 Output Total 1675 2450 Balance -34 -1346 Weight 88.9 kg 90.8 kg General appearance: PRESENT: no acute distress Head exam: PRESENT: atraumatic Eye exam: PRESENT: conjunctiva pink Neck exam: ABSENT: carotid bruit, JVD, lymphadenopathy, thyromegaly Respiratory exam: PRESENT: clear to auscultation isela. ABSENT: rales, rhonchi, wheezes Cardiovascular exam: PRESENT: irregular rhythm. ABSENT: diastolic murmur, rubs, systolic murmur GI/Abdominal exam: PRESENT: normal bowel sounds, soft. ABSENT: distended, guarding, mass, organolmegaly, rebound, tenderness Neurological exam: PRESENT: alert, awake, oriented to time, oriented to situation Psychiatric exam: PRESENT: normal mood Results Laboratory Results: 11/11/18 05:54 11/11/18 05:54 11/08/18 18:22 Blood Blood Culture - Final Streptococcus Salivarius Escherichia Coli 11/08/18 11/08/18 11/08/18 18:22 21:45 21:45 Creatine Kinase 104 CK-MB (CK-2) 0.88 Troponin I < 0.012 < 0.012 NT-Pro-B Natriuret Pep 192 11/09/18 11/09/18 11/09/18 05:08 05:08 10:20 Creatine Kinase 128 112 CK-MB (CK-2) 0.97 Troponin I < 0.012 NT-Pro-B Natriuret Pep 11/09/18 10:20 Creatine Kinase CK-MB (CK-2) 0.90 Troponin I < 0.012 NT-Pro-B Natriuret Pep Impressions: Chest/Abdomen CTA 11/11/18 00:00 IMPRESSION: 1. Small effusions may reflect cardiac dysfunction and mild relatively compensated cardiac failure. No significant lung opacity otherwise. 2. No pulmonary embolus. 3. Evidence of previous granulomatous disease. Assessment & Plan - Diagnosis (1) Sepsis Is this a current diagnosis for this admission?: Yes Plan: His blood culture is positive for E. coli and Streptococcus and both are sensitive to ceftriaxone so vancomycin discontinued (2) Bacteremia Is this a current diagnosis for this admission?: Yes Plan: As #1 (3) New onset A. fib with RVR Is this a current diagnosis for this admission?: Yes Plan: Rate controlled. Dr. Sal has been managing this patient. (4) Coronary artery disease Is this a current diagnosis for this admission?: Yes Plan: No anginal symptoms (5) Hypertension Is this a current diagnosis for this admission?: Yes Plan: Continue current regimen (6) Diet-controlled type 2 diabetes mellitus Is this a current diagnosis for this admission?: Yes Plan: Continue the same management
[2018-11-13] MEDS: FERROUS SULFATE 325 MG TABLET PO SCH (10:45)
[2018-11-13] MEDS: FONDAPARINUX SODIUM INJ 2.5 MG/0.5 ML DISP.SYRIN SUBCUT SCH (10:54)
[2018-11-13] MEDS: CETIRIZINE 10 MG TABLET PO SCH (10:55)
[2018-11-13] MEDS: LOSARTAN POTASSIUM 50 MG TABLET PO SCH (10:55)
[2018-11-13] MEDS: DOCUSATE SODIUM 100 MG CAPSULE PO SCH ×2 (10:55→17:38)
[2018-11-13] MEDS: TAMSULOSIN HCL 0.4 MG CAP.SR.24H PO SCH ×2 (10:55→17:38)
[2018-11-13] MEDS: DUTASTERIDE 0.5 MG CAPSULE PO SCH (10:56)
[2018-11-13] MEDS: SOTALOL HCL 80 MG TABLET PO SCH ×2 (10:56→21:40)
[2018-11-13] MEDS: ASPIRIN 325 MG TABLET PO SCH (10:56)
[2018-11-13] MEDS: CEFTRIAXONE 2 GM/D5W RTU 2 GM/50 ML RTUPB IV SCH (10:56)
--- NOTE | 2018-11-13 17:36 | Progress Note ---
Provider Note Provider Note: CARDIOLOGY PROGRESS NOTE by Dr. Marry Sal, on 11/13/2018. SUBJECTIVE: The patient denies any fever chills or rigors. There is no chest pain or discomfort. He remains in sinus rhythm. The patient's QTC is within acceptable limits. There is no chest pain or discomfort there is no shortness of breath. There is no PND orthopnea or leg edema. There is no ventricular arrhythmia seen on the monitor and no pleural arrhythmias with sotalol. He denies any cough or sputum production. There is no TIA CVA symptoms. PHYSICAL EXAMINATION: The patient is mildly obese. He is in no acute distress. He is well-groomed. Selected Entries 11/13/18 11/13/18 08:09 09:00 Temperature 98.1 F Temperature Oral Source Pulse Rate 57 L Heart Rate ( 61 Monitors) Respiratory 15 Rate Blood Pressure 156/75 H Blood Pressure 102 Mean BP Location Right Arm BP Position Supine O2 Sat by Pulse 96 Oximetry Oxygen Delivery Room Air Method HEAD: Is atraumatic normocephalic. EYES: Pupils equal round regular react to light accommodation. There is no conjunctival pallor. There is no scleral icterus present. EARS: Tympanic memories are intact. External auditory canals are clear. NOSE: There is no deviated nasal septum. There is no inflammation of the nasal mucous membrane. MOUTH: Mucous membranes of mouth are moist. Tongue is moist. There is no ulcers in the mouth. There is no bleeding from the gums. THROAT: There is no redness of the oropharynx. There is no exudates. SKIN: There is no particular ecchymosis. There is no skin rash or skin lesions. NECK: Is supple. There is no JVD. Carotids are equal there is no bruits. There is no lymphadenopathy. There is no goiter. There is no accessory muscle respiration use. Trachea central. LUNGS: Is clear to auscultation percussion without any rhonchi rales or wheezing. On palpation there is no chest wall tenderness. HEART: S1-S2 is heard S1 is of variable intensity. There is no S3 gallop. There is no S4 gallop. There is systolic murmur left sternal border and the apex without radiation. There is no rub. ABDOMEN: Is mildly obese. There is no hepatosplenomegaly. Bowel sounds are well heard. There is no tender areas masses. There is no rebound guarding or rigidity. RETURN TO SERVICE INSPECTOR: The patient is conscious awake alert oriented x3 with no focal deficits. PSYCHIATRIC: The patient judgment and insight are intact his affect is normal. IMPRESSION/RECOMMENDATION: 1. Paroxysmal atrial fibrillation atrial fibrillation: Patient maintains sinus rhythm with sotalol 80 mg orally every 12 hours. 2. Sepsis:. Fever with positive blood cultures: Sepsis with with elevated lactic acid levels. Continue antibiotics and IV fluids. The exact etiology of the sepsis is still obscure this is slowly resolving. The patient is afebrile with stable hemodynamics. This seems to have resolved. Source still unclear. 3. Coronary artery disease: History of stent in the circumflex in 2007. No anginal symptoms. Later would recommend that the patient have a IV Lexiscan Cardiolite stress test. .4 Hypertension: Blood pressure well controlled continue losartan. 5. Diet-controlled diabetes mellitus.Diabetic diet and monitor blood sugars. 6. Hyperlipidemia: Continue statins. 7. Systolic murmur: Etiology: Later we will check an echocardiogram to assess murmur and patient's LV ejection fraction. 8. Coronary artery disease risk factors are patient age, hypertension, diabetes mellitus, and hyperlipidemia. We will schedule the patient for IV Lexiscan Cardiolite stress test tomorrow. The stress test has been discussed with the patient and the including the procedure and the benefits and risks and complications. MEDICATIONS reviewed: Medications changed and new medications added. Management plan discussed with attending physician on the case. Discussed with the patient patient's family also. Medical decision making is of high complexity. 60 minutes spent on this patient more than 50% of time spent in direct patient care. Will follow
[2018-11-13] MEDS: VALACYCLOVIR HCL 500 MG TABLET PO SCH (17:37)
[2018-11-13] MEDS: ATORVASTATIN CALCIUM 10 MG TABLET PO SCH (21:40)
[2018-11-14] MEDS: LANSOPRAZOLE 15 MG TAB.RAP.DR PO SCH (05:34)
--- NOTE | 2018-11-14 07:58 | EKG REPORT ---
SEVERITY:- ABNORMAL ECG - SINUS RHYTHM EARLY PRECORDIAL TRANSITION, R/O [place]LD [place] : Confirmed by: Varinder Adams MD 14-Nov-2018 07:57:43
--- NOTE | 2018-11-14 11:01 | XCELERA REPORT ---
[address] [address] Transthoracic Echocardiogram Report Name: EFREN IRENE SHETTY Age: 78 yrs Gender: Male : 1940 Patient Status: Inpatient Patient Location: [address] [place] [address] Study Date: 11/13/2018 06:23 PM Height: 65 in Weight: 200 lb BSA: 2.0 m2 Procedure: PAF / Murmur. Study Quality: Poor. The study was technically difficult with many images being suboptimal in quality. Images were not obtained from all of the standard acoustic windows due to the limited scope of the study. Reason For Study: PAF / Murmur Ordering Physician: MARRY ALVAREZ Performed By: Modesta Holm Interpretation Summary Images were not obtained from all of the standard acoustic windows due to the limited scope of the study. The left ventricle is grossly normal size. There is normal left ventricular wall thickness. No True apical 2 chamber views obtained.Hence cannot comment on the apical anterior , the basal anterior, the basal inferior and apical inferior chavez.The mid anterior , the mid inferior and the rest of the LV chavez contract normally. . LVEF is normal and is greater than 60% in the limited views. Doppler measurements suggest impaired left ventricular relaxation, which is associated with grade I/IV or mild diastolic dysfunction The right ventricle is not well visualized secondary to technical limitations Grossly normal LA size. There is no evidence of mitral valve prolapse. There is no mitral valve stenosis. There is a trace amount of mitral regurgitation No aortic regurgitation is present. There is no tricuspid stenosis. Probably trace TR.No significant pulmonsry hypertension.RVSP is 33 mm of Hg , with RA mean of 10. The inferior vena cava appeared normal and decreased > 50% with respiration (RAP 5-10 mmHg) There is no pericardial effusion. MMode/2D Measurements & Calculations RVDd: 2.4 cm LVIDd: 4.7 cm FS: 31.3 % Ao root diam: 2.8 cm IVSd: 1.1 cm LVIDs: 3.2 cm EDV(Teich): 100.5 ml Ao root area: 6.3 cm2 LVPWd: 1.1 cm ESV(Teich): 41.0 ml LA dimension: 3.1 cm EF(Teich): 59.2 % Doppler Measurements & Calculations MV E max zachary: MV P1/2t max zachary: Ao V2 max: LV V1 max P.8 cm/sec 93.8 cm/sec 124.2 cm/sec 4.8 mmHg MV A max zachary: MV P1/2t: 59.9 msec Ao max P.2 mmHgLV V1 max: 92.8 cm/sec MVA(P1/2t): 3.7 cm2 109.6 cm/sec MV E/A: 0.97 MV dec slope: 458.8 cm/sec2 MV dec time: 0.15 sec PA V2 max: TR max zachary: MV P1/2t-pr_phl: 103.2 cm/sec 241.5 cm/sec 59.9 msec PA max P.3 mmHgTR max P.3 mmHg Left Ventricle The left ventricle is grossly normal size. There is normal left ventricular wall thickness. No True apical 2 chamber views obtained.Hence cannot comment on the apical anterior , the basal anterior, the basal inferior and apical inferior chavez.The mid anterior , the mid inferior and the rest of the LV chavez contract normally. . LVEF is normal and is greater than 60% in the limited views. Doppler measurements suggest impaired left ventricular relaxation, which is associated with grade I/IV or mild diastolic dysfunction. No True apical 2 chamber views obtained.Hence cannot comment on the apical anterior , the basal anterior, the basal inferior and apical inferior chavez.The mid anterior , the mid inferior and the rest of the LV chavez contract normally. . LVEF is normal and is greater than 60% in the limited views. Right Ventricle The right ventricle is not well visualized secondary to technical limitations. Atria Right atrium not well visualized secondary to technical limitations. Grossly normal LA size. Mitral Valve There is no evidence of mitral valve prolapse. There is no mitral valve stenosis. There is a trace amount of mitral regurgitation. Aortic Valve There is no aortic valve stenosis. No aortic regurgitation is present. Tricuspid Valve There is no tricuspid stenosis. Probably trace TR.No significant pulmonsry hypertension.RVSP is 33 mm of Hg , with RA mean of 10. Pulmonic Valve The pulmonic valve is not well visualized. Great Vessels The aortic root is not well visualized. The inferior vena cava appeared normal and decreased > 50% with respiration (RAP 5-10 mmHg). Effusions There is no pericardial effusion. : MARRY ALVAREZ > Marry Alvarez
[2018-11-14 11:28] VITALS: BP 172/52
[2018-11-14] MEDS ORDERED: REGADENOSON INJ 0.4 MG/5 ML DISP.SYRIN IV ONE (12:15)
--- NOTE | 2018-11-14 13:16 | PDOC DISCHARGE SUMMARY ---
General - Admit/Disc Date/PCP Admission Date/Primary Care Provider: 11/08/18 20:54 HOMER MARTINEZ, DO Discharge Date: 11/14/18 - Discharge Diagnosis (1) Sepsis Is this a current diagnosis for this admission?: Yes (2) Bacteremia Is this a current diagnosis for this admission?: Yes (3) New onset A. fib with RVR Is this a current diagnosis for this admission?: Yes (4) Coronary artery disease Is this a current diagnosis for this admission?: Yes (5) Hypertension Is this a current diagnosis for this admission?: Yes (6) Diet-controlled type 2 diabetes mellitus Is this a current diagnosis for this admission?: Yes - Additional Information Resuscitation Status: Full Code Home Medications: Aspirin [Ecotrin 81 mg EC Tablet] 81 mg PO DAILY 11/09/18 Cetirizine HCl [Zyrtec 10 mg Tablet] 10 mg PO DAILY 11/09/18 Dutasteride [Avodart Lf 0.5 mg Capsule] 0.5 mg PO DAILY 11/09/18 Ferrous Sulfate [Feosol 325 mg Tablet] 325 mg PO DAILY 11/09/18 Isosorbide Mononitrate [Imdur 60 mg Tablet.er] 60 mg PO DAILY 11/09/18 Losartan Potassium [Cozaar 100 mg Tablet] 100 mg PO DAILY 11/09/18 Metoprolol Succinate [Toprol Xl 25 mg Tab.sr] 25 mg PO DAILY 11/09/18 Omeprazole 20 mg PO DAILY 11/09/18 Oxybutynin Chloride [Ditropan 5 mg Tablet] 5 mg PO DAILY 11/09/18 Pravastatin Sodium [Pravachol] 40 mg PO QHS 11/09/18 Tamsulosin HCl [Flomax 0.4 mg Cap.sr] 0.4 mg PO BID 11/09/18 Valacyclovir HCl [Valtrex 500 mg Tablet] 500 mg PO BID 11/09/18 History of Present Illness History of Present Illness: IRENE SCHWARTZ SR is a 78 year old male who presented to the emergency room with acute onset of fever. Patient states that he was at home today and at approximately 4 PM developed a sensation of severe fatigue and generalized weakness accompanied by severe chills causing him to bundle up and sit by the fireplace. His noticed he was feeling poorly and checked his temperature with a digital thermometer which recorded a 104 F reading. She insisted that he come to the hospital immediately at that point. He describes his general fatigue, weakness and malaise as moderate to severe and his fever and chills as severe. He denies the presence of any other associated symptoms. He admits chauhan ving similar symptoms on numerous occasions in the past without fever and on one occasion with fever at which time he was diagnosed with sepsis. Recently he has experienced several similar brief episodes without fever over the last 2-3 weeks and this is his second or third similar episode this week. In the emergency room he was found to have a normal evaluation with the exception of an elevated lactic acid of 3.4 and apparent new onset atrial fibrillation with rapid ventricular response. With these findings the patient was hospitalized for further evaluation and treatment. Hospital Course Hospital Course: This is a 78 years old male patient with past medical history of hypertension, and coronary artery disease status post stent placement presented with fever and shaking chills. His blood work shows leukocytosis of 22,000 his EKG shows new onset A. fib with RVR and his blood culture grew gram-negative pawel, gram positive cocci in chains and gram-positive cocci. Patient has been empirically started on vancomycin and meropenem. I switch his meropenem to cefepime and later after the final report of the blood culture which is positive for gram-negative rods identified as E. coli and gram-positive cocci identified as Streptococcus and both organisms are sensitive to ceftriaxone so I discontinue the vancomycin and the cefepime and switch him to ceftriaxone.. This morning I seen patient sitting on chair chatting with his . And the report is he feeling much better. Patient remained febrile and his vital signs are within normal limits. Since he has intermittent A. fib with RVR Dr. Sal consulted who increased the dose of sotalol to 80 mg. Morning patient scheduled for cardiac stress test since he has multiple risk factors. If the cardiac stress test negative patient is potential discharge this morning. I will send him home with Levaquin 500 mg p.o. daily for 5 days and sotalol 80 mg twice daily as recommended by Dr. Sal. Dr. Sal who will discuss regarding anticoagulation for his A. fib next week at his office. Physical Exam Vital Signs: Temp Pulse Resp BP Pulse Ox 98.2 F 47 L 18 162/68 H 96 11/14/18 04:49 11/14/18 07:00 11/14/18 04:49 11/14/18 04:49 11/14/18 04:49 Intake & Output 11/13/18 11/14/18 11/15/18 06:59 06:59 06:59 Intake Total 1104 1570 Output Total 2450 2280 Balance -1346 -710 Weight 90.8 kg 90.6 kg General appearance: PRESENT: no acute distress, well-developed, well-nourished Head exam: PRESENT: atraumatic, normocephalic Eye exam: PRESENT: conjunctiva pink, EOMI, PERRLA. ABSENT: scleral icterus Ear exam: PRESENT: normal external ear exam Mouth exam: PRESENT: moist, tongue midline Neck exam: ABSENT: carotid bruit, JVD, lymphadenopathy, thyromegaly Respiratory exam: PRESENT: clear to auscultation isela. ABSENT: rales, rhonchi, wheezes Cardiovascular exam: PRESENT: RRR. ABSENT: diastolic murmur, rubs, systolic murmur Pulses: PRESENT: normal dorsalis pedis pul Vascular exam: PRESENT: normal capillary refill GI/Abdominal exam: PRESENT: normal bowel sounds, soft. ABSENT: distended, guarding, mass, organolmegaly, rebound, tenderness Rectal exam: PRESENT: deferred Extremities exam: PRESENT: full ROM. ABSENT: calf tenderness, clubbing, pedal edema Neurological exam: PRESENT: alert, awake, oriented to person, oriented to place, oriented to time, oriented to situation, CN II-XII grossly intact. ABSENT: motor sensory deficit Psychiatric exam: PRESENT: appropriate affect, normal mood. ABSENT: homicidal ideation, suicidal ideation Skin exam: PRESENT: dry, intact, warm. ABSENT: cyanosis, rash Results Laboratory Results: 11/11/18 05:54 11/11/18 05:54 11/08/18 11/08/18 11/08/18 18:22 21:45 21:45 Creatine Kinase 104 CK-MB (CK-2) 0.88 Troponin I < 0.012 < 0.012 NT-Pro-B Natriuret Pep 192 11/09/18 11/09/18 11/09/18 05:08 05:08 10:20 Creatine Kinase 128 112 CK-MB (CK-2) 0.97 Troponin I < 0.012 NT-Pro-B Natriuret Pep 11/09/18 10:20 Creatine Kinase CK-MB (CK-2) 0.90 Troponin I < 0.012 NT-Pro-B Natriuret Pep Impressions: Chest/Abdomen CTA 11/11/18 00:00 IMPRESSION: 1. Small effusions may reflect cardiac dysfunction and mild relatively compensated cardiac failure. No significant lung opacity otherwise. 2. No pulmonary embolus. 3. Evidence of previous granulomatous disease. Qualifiers - * PATIENT BEING DISCHARGED WITH ANY OF THE FOLLOWING DIAGNOSIS: No
[2018-11-14] MEDS ORDERED: APIXABAN 5 MG TABLET PO SCH (14:30)
[2018-11-14] MEDS: DUTASTERIDE 0.5 MG CAPSULE PO SCH (14:37)
[2018-11-14] MEDS: FONDAPARINUX SODIUM INJ 2.5 MG/0.5 ML DISP.SYRIN SUBCUT SCH (14:37)
[2018-11-14] MEDS: SOTALOL HCL 80 MG TABLET PO SCH (14:37)
[2018-11-14] MEDS: ASPIRIN 325 MG TABLET PO SCH (14:37)
[2018-11-14] MEDS: DOCUSATE SODIUM 100 MG CAPSULE PO SCH (14:38)
[2018-11-14] MEDS: LOSARTAN POTASSIUM 50 MG TABLET PO SCH (14:38)
[2018-11-14] MEDS: FERROUS SULFATE 325 MG TABLET PO SCH (14:38)
[2018-11-14] MEDS: CEFTRIAXONE 2 GM/D5W RTU 2 GM/50 ML RTUPB IV SCH (14:39)
[2018-11-14] MEDS: TAMSULOSIN HCL 0.4 MG CAP.SR.24H PO SCH (14:39)
[2018-11-14] MEDS: CETIRIZINE 10 MG TABLET PO SCH (14:40)
[2018-11-14] MEDS: VALACYCLOVIR HCL 500 MG TABLET PO SCH (14:40)
--- NOTE | 2018-11-14 21:25 | Progress Note ---
Provider Note Provider Note: CARDIOLOGY PROGRESS NOTE by Dr. Marry Sal. On 11/14/2018 SUBJECTIVE: The patient remains in sinus rhythm. There is no pleural arrhythmia on sotalol. There is no TIA CVA symptoms. I have again rediscussed the option of starting the patient on oral anticoagulation. Patient agrees. We will start the patient on Eliquis. The patient did have an echocardiogram last night. He also had a IV Lexiscan Cardiolite stress test today. The patient denies any shortness of breath cough or sputum production. There is no PND orthopnea or leg edema. There is no anginal symptoms. There is no ventricular arrhythmia seen on the monitor. There is no TIA CVA symptoms. Of note patient has no contraindications for starting oral anticoagulation. PHYSICAL EXAMINATION: The patient is mildly obese. He is well-groomed. In no acute distress. Selected Entries 11/14/18 11:27 Temperature 97.9 F Temperature Oral Source Pulse Rate 59 L Respiratory 20 Rate Blood Pressure 172/52 H [Right Upper Arm] Blood Pressure 92 Mean [Right Upper Arm] Blood Pressure Supine Position [Right Upper Arm] O2 Sat by Pulse 100 Oximetry Oxygen Delivery Room Air Method ( includes room air) HEAD: Is atraumatic normocephalic. EYES: Pupils equal round regular react to light accommodation. There is no conjunctival pallor. There is no scleral icterus present. EARS: Tympanic memories are intact. External auditory canals are clear. NOSE: There is no deviated nasal septum. There is no inflammation of the nasal mucous membrane. MOUTH: Mucous membranes of mouth are moist. Tongue is moist. There is no ulcers in the mouth. There is no bleeding from the gums. THROAT: There is no redness of the oropharynx. There is no exudates. SKIN: There is no particular ecchymosis. There is no skin rash or skin lesions. NECK: Is supple. There is no JVD. Carotids are equal there is no bruits. There is no lymphadenopathy. There is no goiter. There is no accessory muscle respiration use. Trachea central. LUNGS: Is clear to auscultation percussion without any rhonchi rales or wheezing. On palpation there is no chest wall tenderness. HEART: S1-S2 is heard S1 is of variable intensity. There is no S3 gallop. There is no S4 gallop. There is systolic murmur left sternal border and the apex without radiation. There is no rub. ABDOMEN: Is mildly obese. There is no hepatosplenomegaly. Bowel sounds are well heard. There is no tender areas masses. There is no rebound guarding or rigidity. CIRCULATION ANALYST: The patient is conscious awake alert oriented x3 with no focal deficits. PSYCHIATRIC: The patient judgment and insight are intact his affect is normal. The patient's echocardiogram: Shows that there is no true 2 chamber acute apical views. Hence cannot comment on the apical anterior, the basal anterior, the apical inferior and the basal inferior and apical anterior chavez. The mid anterior, and the mid inferior, and the rest of the LV chavez contract normally and the LV ejection fraction is normal. There is no significant pulmonary hypertension. There is no significant valvular disease. The patient underwent IV Lexiscan cardiac stress test which did not show any reversible ischemia or scar. The echo and stress findings were discussed the patient patient's . He has a patient's chads score being at least 3, we discussed the option of starting the patient on Eliquis 5 mg p.o. twice daily. Patient and acceptable to this. They are they are aware of the effects of stroke prophylaxis, and bleeding complications. Discussed this with attending physician. Stress test shows no evidence of NC or ischemia. Will get a 30-day event monitor as an outpatient. Medications reviewed. Medications added. Management plan discussed with the attending physician on the case. Also discussed with patient patient's . Patient's cardiac status is stable. Would recommend continue the patient on sotalol 80 mg p.o. every 12 hours, and also continue the patient on his other current medications, and stop the patient's aspirin, and start the patient on Eliquis 5 mg p.o. twice daily. We will follow the patient in the office. Will sign off. The patient and have my contact numbers to reach me in case of any problems.
[2018-11-15] MEDS ORDERED: PANTOPRAZOLE SODIUM 20 MG TABLET.DR PO SCH (06:00)
--- NOTE | 2018-11-18 00:14 | DRAGON STRESS TEST REPORT ---
Intravenous Lexiscan Cardiolite stress test using single photon emmision computerized tomography. Date of procedure: 11/14/2018. Ordering Provider: Dr. Marry Sal. Patient's status: In Patient. Indication: Chest pain in a patient with a history of coronary artery disease.. Coronary risk factors: Age, hypertension, dyslipidemia, and family history of coronary artery disease. Resting EKG: Sinus Rhythm. Within Normal Limits. Stress EKG: No changes of ischemia. The patient had no chest pain or discomfort, and there were no arrhythmias seen. Reason for termination: Protocol. Conclusions: Normal EKG and hemodynamic response to IV Lexiscan. Nuclear data: At rest the patient was given 10.38 millicuries of technetium 99m sestamibi injected intravenously. As per protocol rest non gated SPECT images were obtained. Subsequently the patient was given intravenous Lexiscan at a dose of 0.4 mg in 5 mL intravenously, followed by flush with normal saline. Subsequently the stress dose of 31.4 millicuries of technetium 99m sestamibi was injected intravenously. As per protocol stress gated images were obtained. Nuclear interpretation: Review of images showed that all segments of the myocardium had normal perfusion at rest, and normal perfusion post stress with IV Lexiscan. All segments of the myocardium had normal motion, contraction, and thickening by gated study. There is no transient ischemic dilatation of the left ventricle T. I D. ratio was normal at 0.94. Computer read rest, and stress left ventricular ejection fraction were 62 %, and 57 %, respectively. Conclusion: 1. There is no scintigraphic evidence of Lexiscan induced myocardial ischemia. 2. There is no scintigraphic evidence of myocardial infarction/scar. RECOMMENDATION: Treatment of coronary artery disease, and aggressive risk factor modification. Treatment of comorbidities. [facility]
== END 2018-11-14 14:34 | disposition home or self-care (01) | DRG 872 ==
LOC: ER 16:53 → EH 20:54 → 3S 11-09 00:20
PROVIDERS: ADMIT Emergency Medicine; ATTEND Emergency Medicine
DX: A40.8 Other streptococcal sepsis (principal); A41.51 Sepsis due to Escherichia coli [E. coli]; I48.0 Paroxysmal atrial fibrillation; I25.10 Atherosclerotic heart disease of native coronary artery without angina pectoris; I10 Essential (primary) hypertension; E11.9 Type 2 diabetes mellitus without complications; E78.5 Hyperlipidemia, unspecified; I45.10 Unspecified right bundle-branch block; K21.9 Gastro-esophageal reflux disease without esophagitis; R01.1 Cardiac murmur, unspecified; E66.9 Obesity, unspecified; Z95.5 Presence of coronary angioplasty implant and graft; Z79.82 Long term (current) use of aspirin; Z79.899 Other long term (current) drug therapy; Z82.49 Family history of ischemic heart disease and other diseases of the circulatory system; Z87.891 Personal history of nicotine dependence; Z91.013 Allergy to seafood; Z88.8 Allergy status to other drugs, medicaments and biological substances
CPT/HCPCS: 36415; 71045; 71275; 78452; 80048; 80053; 80061; 80202; 81001; 82550; 82553; 82803; 83605; 83735; 83880; 84439; 84443; 84481; 84484; 85025; 85610; 85730; 87040; 87077; 87086; 87186; 87804; 93005; 93010; 93017; 93306; 96361; 96365; 96376; 99291; A9500; J0360; J0692; J0696; J1652; J2185; J2785; J3370; J3490; J7030; J7060; J7120